=== PATIENT | male | born 1950 | race Caucasian/White ===

== ENCOUNTER 2019-09-14 08:06 | Outpatient (CLI) | payer MEDICARE, MEDICAID, SELFPAY ==
--- NOTE | 2019-09-14 08:00 | XRR_ITS ---
PROCEDURE INFORMATION: Exam: XR Abdomen, 1 View Exam date and time: 09/14/2019 8:34 AM Age: 69 years old Clinical indication: Condition or disease; Kidney or ureter condition; Calculus (stone) in ureter; Additional info: Stones lt ureter TECHNIQUE: Imaging protocol: XR of the abdomen. Views: Frontal supine view of the abdomen. 1 View. COMPARISON: CR XR KUB [id number] 09/09/2018 12:49 PM FINDINGS: Gastrointestinal tract: The bowel gas pattern is nonspecific. Air filled large bowel including distal rectal gas. Organs: 4 mm calcification overlies the lower pole of the left kidney. No significant change. Bones/joints: Severe degenerative changes lower lumbar spine XR/XR KUB [id number] IMPRESSION: 1. The bowel gas pattern is nonspecific. Air filled large bowel including distal rectal gas. 2. 4 mm calcification overlies the lower pole of the left kidney. No significant change.
== END 2019-09-14 08:07 | disposition home or self-care (01) ==
LOC: RAD 08:09
PROVIDERS: Family Provider Internal Medicine; PCP Urology; Visit Provider Urology
DX: N20.1 Calculus of ureter (principal); N20.0 Calculus of kidney
CPT/HCPCS: 74018; 81001

== ENCOUNTER 2020-09-13 07:05 | Outpatient (CLI) | payer MEDICARE, MEDICAID, SELFPAY ==
--- NOTE | 2020-09-13 07:10 | XR_ITS ---
WS: [id number] KUB, AP view, 09/13/2020 Clinical Data: RENAL STONE Comparison: KUB, 09/14/2019. Findings: No abnormal intraabdominal masses or calcifications are seen. There is no dilatated small bowel or ev idence of obstruction. The calcification overlying the lower pole of the left kidney may be obscured by bowel gas. The right kidney is obscured by bowel gas and fecal material. Degenerative changes of the lower lumbar vertebr al bodies are seen. There are vascular calcifications in the true pelvis. XR/XR KUB [id number] Impression: Possible calcification overlying the lower pole of the left kidney.
== END 2020-09-13 07:06 | disposition home or self-care (01) ==
PROVIDERS: PCP Urology; Visit Provider Urology
DX: N20.0 Calculus of kidney (principal)
CPT/HCPCS: 74018; 81003

== ENCOUNTER 2022-12-26 21:35 | Observation (INO) | payer MEDICARE, MEDICAID, SELFPAY ==
--- NOTE | 2022-12-26 21:36 | XRR_ITS ---
PROCEDURE INFORMATION: Exam: XR Chest Exam date and time: 12/26/2022 9:41 PM Age: 72 years old Clinical indication: Chest pressure; Prior surgery; Surgery date: 6+ months; Surgery type: Cabg; Patient HX: Sudden onset chest pain; HTN; Smoker x 50+ yrs; Vascular disease TECHNIQUE: Imaging protocol: Radiologic exam of the chest. Views: 1 view. COMPARISON: CR XR KUB [id number] 09/13/2020 7:14 AM FINDINGS: Lungs: No focal consolidation. Streaky opacity in the right lateral lung base, likely atelectasis/scarring. Pleural spaces: No large pleural effusion. No pneumothorax. Heart/Mediastinum: Unremarkable cardiomediastinal silhouette. Bones/joints: No acute osseous abnormality. Fracture of the inferior-most sternal wire. XR/XR chest 1V portable [id number] IMPRESSION: No acute findings.
[2022-12-26 21:38] VITALS: BMI 24.3
[2022-12-26 21:43] VITALS: BP 170/84; PULSE 108; RESP 16; TEMP 37.1; O2SAT 94
--- NOTE | 2022-12-26 21:44 | PC.NURSE ---
STEMI alert was called at 2119, Dr. Prince is going to further evaluate pt and EKG before deciding if we will do a cath or not.
--- NOTE | 2022-12-26 21:48 | W.ED.CHESTPA ---
HPI - Chest Pain General: Chief Complaint: Chest Pain Stated Complaint: CP Time Seen by Provider: 12/26/22 21:36 Source: patient Mode of arrival: ambulatory Limitations: no limitations History of Present Illness: 72-year-old male who has extensive cardiac history states that 30 minutes ago he started having chest pain in the center of his chest he received nitro and aspirin states pain has improved it is currently a 3 out of 10 he denies any diaphoresis or shortness of breath. He has had no recent cardiac work-ups. Associated symptoms: Deny abdominal pain, dyspnea, fever(s), nausea or vomiting Review of Systems Const: Denies: fever(s) or chills ENMT: Denies: throat pain or dental pain Card: Reports: chest pain Resp: Denies: dyspnea GI: Denies: abdominal pain, nausea, vomiting or diarrhea Musc: Denies: neck pain or back pain Skin/Breast: Denies: rash Neuro: Denies: headache(s) PFSH ED PFSH: Medical History Hypertension Left renal stone Left ureteral calculus Surgical History H/O lithotripsy Hx of CABG S/P appendectomy Family History Family/Other CAD (coronary artery disease) Social History Smoking and tobacco/nicotine status: current every day tobacco/nicotine user Alcohol intake: never Substance/Drug Use: never Marital status: Current occupational status: retired Physical Exam Const: COMMON NORMALS: no acute distress, patient oriented x3 and healthy appearing HENMT: COMMON NORMALS: normocephalic and atraumatic HEAD & SCALP: normocephalic and atraumatic Neck/C-Spine: COMMON NORMALS: full ROM and supple Chest: COMMONS NORMALS: normal inspection of the chest and normal palpation of entire chest wall Resp: COMMON NORMALS: normal respiratory effort, No retractions, No use of accessory muscles and clear to auscultation bilaterally AUSCULTATION: clear to auscultation bilaterally Cardio: COMMON NORMALS: regular rate, regular rhythm and No murmurs present (Cardio) RATE: regular rate RHYTHM: regular rhythm GI: COMMON NORMALS: Normal to inspection, nondistended, normoactive bowel sounds present, Soft to palpation, non-tender and no masses PALPATION: Yes Soft to palpation Extremity: COMMON NORMALS: normal to inspection and full ROM Neuro: COMMON NORMALS: patient oriented x3, moves all extremities and no focal motor deficits Psych: COMMON NORMALS: mental status grossly normal Skin: COMMON NORMALS: no rashes or lesions noted and no wounds GENERAL SKIN EXAM: no rashes or lesions noted Course Vital Signs: Vital signs: Vital Signs Temperature 98.7 F 12/26/22 21:43 Pulse Rate 75 12/26/22 22:40 Respiratory Rate 18 12/26/22 22:40 Blood Pressure 129/83 12/26/22 22:40 Pulse Oximetry 95 12/26/22 22:40 Oxygen Delivery Me thod Nasal Cannula 12/26/22 22:40 Oxygen Flow Rate 2 12/26/22 22:40 MDM - Chest Pain Medical Decision Making Patient presents here with chest pain initial troponin troponin EKG showed no ST elevation he does have extensive history spoke to hospitalist will admit at this time for observation to rule out ACS Medical Records I reviewed the patient's medical records. Lab Data I reviewed the patient's lab results. 12/26/22 21:49 12/26/22 21:49 Radiology Impressions Chest X-Ray 12/26/22 21:36 IMPRESSION: No acute findings. Laboratory Results WBC 4.91 10^3/uL (3.29-11.43) 12/26/22 21:49 Corrected WBC Cancelled 12/26/22 21:16 RBC 4.26 10^6/uL (3.85-5.65) 12/26/22 21:49 Hgb 13.30 g/dL (11.27-16.99) 12/26/22 21:49 Hct 41.5 % (37-53) 12/26/22 21:49 MCV 97.4 fl (82-101) 12/26/22 21:49 MCH 31.2 pg (27-33) 12/26/22 21:49 MCHC 32.0 g/dL (30-55) 12/26/22 21:49 RDW 17.2 % (12.1-15.1) H 12/26/22 21:49 Plt Count 124 10^3/cmm (157-399) L 12/26/22 21:49 MPV 10.6 fL (7.4-10.4) H 12/26/22 21:49 Gran % Cancelled 12/26/22 21:16 Neut % (Auto) 59.2 % 12/26/22 21:49 Lymph % (Auto) 36.5 % 12/26/22 21:49 [place] % (Auto) 3.3 % 12/26/22 21:49 Eos % (Auto) 0.0 % 12/26/22 21:49 Baso % (Auto) 0.0 % 12/26/22 21:49 Neut # (Auto) 2.91 10^3/uL (1.8-7.7) 12/26/22 21:49 Lymph # (Auto) 1.8 10^3/uL (0.8-4.8) 12/26/22 21:49 [place] # (Auto) 0.2 10^3/uL (0.2-0.9) 12/26/22 21:49 Eos # (Auto) 0.0 10^3/uL (0.0-0.8) 12/26/22 21:49 Baso # (Auto) 0.0 10^3/uL (0.0-0.1) 12/26/22 21:49 Absolute Gran (auto) Cancelled 12/26/22 21:16 Nucleated RBC % (auto) 0 % 12/26/22 21:49 Nucleated RBCs # 0.0 /100WBC 12/26/22 21:49 PT 13.80 SECONDS (12.1-14.9) 12/26/22 21:49 INR 1.03 (0.8-1.2) 12/26/22 21:49 Sodium 142 mmol/L (136-145) 12/26/22 21:49 Potassium 4.7 mmol/L (3.5-5.1) 12/26/22 21:49 Chloride 107 mmol/L (98-107) 12/26/22 21:49 Carbon Dioxide 22 mmol/L (22-29) 12/26/22 21:49 Anion Gap 17.7 (5-19) 12/26/22 21:49 BUN 16 mg/dL (8-23) 12/26/22 21:49 Creatinine 1.0 mg/dL (0.7-1.2) 12/26/22 21:49 GFR Calculation Not Reportable 12/26/22 21:49 Glucose 215 mg/dL (65-115) H 12/26/22 21:49 Calculated Osmolality 302 mOsm/kg (285-295) H 12/26/22 21:49 Calcium 8.7 mg/dL (8.5-10.5) 12/26/22 21:49 Total Bilirubin 0.3 mg/dL (0.15-1.2) 12/26/22 21:49 AST 17 U/L (0-40) 12/26/22 21:49 ALT 17 U/L (0-41) 12/26/22 21:49 Alkaline Phosphatase 95 U/L (40-130) 12/26/22 21:49 Troponin T Baseline 20 ng/L (0-15) H 12/26/22 21:49 Total Protein 6.1 g/dL (6.6-8.7) L 12/26/22 21:49 Albumin 4.2 g/dL (3.5-5.2) 12/26/22 21:49 Globulin 1.9 g/dL (1.3-4.6) 12/26/22 21:49 No radiology studies performed this visit EKG Data EKG 1: I personally reviewed and interpreted this EKG as follows: EKG interpretation date: 12/26/22 EKG interpretation time: 21:35 Interpretation: nsr hr [address] or t wave abnormalities qrs 117 qtc 418 Discharge Plan Discharge Condition: Stable Prescriptions: No Action hydrocodone-acetaminophen [[place]] 7.5-325 mg tablet 1 tab PO BID PRN sertraline 50 mg tablet 50 mg PO DAILY diltiazem HCl [Cartia XT] 120 mg capsule,extended release 24hr 120 mg PO DAILY diclofenac sodium 50 mg tablet,delayed release (DR/EC) 50 mg PO DAILY atenolol 25 mg tablet 25 mg PO DAILY trazodone 100 mg tablet 100 mg PO DAILY albuterol sulfate [Ventolin HFA] 90 mcg/actuation HFA aerosol inhaler 2 puff INHALATION Q6H PRN Referrals: Nino Segundo MD [Primary Care Provider] - Coding Level of Care Code ED Motor Vehicle Salesperson for Chg Tonya
[2022-12-26] MEDS: ondansetron 2 mg/ML SDV 2 mL 4 MG IVP (21:49)
[2022-12-26 21:51] VITALS: RESP 20
[2022-12-26] MEDS: morphine 4 mg/mL SDV 1 mL IVP (21:51)
[2022-12-26 21:55] LABS: Hematocrit 41.5 % (37-53); Lymphocytes # 1.8 10^3/uL (0.8-4.8); Lymphocytes % 36.5 %; Mean Corpuscular Hemoglobin 31.2 pg (27-33); Mean Corpuscular Volume 97.4 fl (82-101); Mean Platelet Volume 10.6 fL (7.4-10.4); Monocytes # 0.2 10^3/uL (0.2-0.9); Monocytes % 3.3 %; Neutrophils # 2.91 10^3/uL (1.8-7.7); Neutrophils % 59.2 %; Nucleated Red Blood Cells % 0 %; Platelet Count 124 10^3/cmm (157-399); Red Blood Count 4.26 10^6/uL (3.85-5.65); Red Cell Distribution Width 17.2 % (12.1-15.1); White Blood Count 4.91 10^3/uL (3.29-11.43)
[2022-12-26 22:08] LABS: INR 1.03 (0.8-1.2)
[2022-12-26 22:11] VITALS: BP 150/72; PULSE 78; RESP 22; O2SAT 96
--- NOTE | 2022-12-26 22:11 | ECG_ITS ---
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 Measurements Intervals [place] Rate: 80 P: -12 CT: 154 QRS: 68 QRSD: 121 T: 37 QT: 390 QTc: 451 Interpretive Statements SINUS RHYTHM POSSIBLE LEFT ATRIAL ENLARGEMENT [-0.1mV P-WAVE IN V1/V2] MODERATE INTRAVENTRICULAR CONDUCTION DELAY [110+ ms QRS DURATION] NONSPECIFIC ST & T-WAVE ABNORMALITY No previous ECG available for comparison Electronically Signed On 12-27-2022 14:13:36 COUNT TEAM MEMBER by Neto Prince M.D. [email or web address]/[id number]
[2022-12-26 22:15] LABS: Troponin(5th) Baseline 20 ng/L (0-15)
[2022-12-26 22:17] LABS: Alanine Aminotransferase 17 U/L (0-41); Albumin Level 4.2 g/dL (3.5-5.2); Alkaline Phosphatase 95 U/L (40-130); Anion Gap 17.7 (5-19); Aspartate Amino Transferase 17 U/L (0-40); Blood Urea Nitrogen 16 mg/dL (8-23); Calcium 8.7 mg/dL (8.5-10.5); Carbon Dioxide 22 mmol/L (22-29); Chloride 107 mmol/L (98-107); Globulin 1.9 g/dL (1.3-4.6); Glucose 215 mg/dL (65-115); Osmolality Calculated 302 mOsm/kg (285-295); Potassium 4.7 mmol/L (3.5-5.1); Sodium 142 mmol/L (136-145); Total Bilirubin 0.3 mg/dL (0.15-1.2); Total Protein 6.1 g/dL (6.6-8.7)
[2022-12-26 22:40] VITALS: BP 129/83; PULSE 75; RESP 18; O2SAT 95
--- NOTE | 2022-12-26 22:47 | PM.HP ---
Providers/Chief Complaint Primary Care Provider: Nino Segundo MD Chief Complaint: CP History of Present Illness Dean Mejia is a 72 year old male with a past medical history significant for 5v CABG (2020), myocardial infarction, asthma, hypertension, osteoarthritis on NSAIDs, and tobacco use disorder who presents to the emergency department with chest pain with onset prior to arrival. Describes location as substernal. Radiation to back and neck. Rated initially 10 out of 10. Reports he took 2 NTG initially without effect. EMS administered 4 aspirin and more nitroglycerin with improvement in pain. He reports a history of prior myocardial infarction. He states the symptoms today are the same as his prior ME. He has a history of a 5 vessel CABG in 2000. He denies any recent ischemic work up. Reports he takes a baby aspirin daily. Of note, patient is also on diltiazem. He is unsure if he has a history of atrial fibrillation. EKG is in sinus rhythm. He reports he takes a blood thinner but there is none listed on his home medication list in his wallet. He reports he lives a fairly sedentary lifestyle due to significant osteoarthritis. States he continues to smoke cigarettes but has cut back since moving into a building that does not allow smoking. In the ED, labs revealed elevated high sensitivity troponin T of 20 ng/L, hyperglycemia, and thrombocytopenia with platelets of 124. He states he was recently diagnosed with low platelets with PLT in the 80s last week. His doctor has him scheduled to recheck labs next month. He is on prescription diclofenac tabs. Review of Systems Narrative: A complete review of systems was obtained and is negative except as stated in HPI. Medications/Allergies Home Medications Medication Instructions Recorded Confirmed Last Taken Type albuterol sulfate 90 mcg/actuation 2 puff inhalation Q6H PRN 09/14/19 09/13/20 Unknown History aerosol inhaler (Ventolin HFA) atenolol 25 mg tablet 25 mg PO DAILY 09/14/19 09/13/20 Unknown History diclofenac sodium 50 mg 50 mg PO DAILY 09/14/19 09/13/20 Unknown History tablet,delayed release diltiazem HCl 120 mg 120 mg PO DAILY 09/14/19 09/13/20 Unknown History capsule,extended release 24 hr (Cartia XT) hydrocodone 7.5 mg-acetaminophen 1 tab PO BID PRN 09/14/19 09/13/20 Unknown History 325 mg tablet ([place]) sertraline 50 mg tablet 50 mg PO DAILY 09/14/19 09/13/20 Unknown History trazodone 100 mg tablet 100 mg PO DAILY 09/14/19 09/13/20 Unknown History Allergies Allergy/AdvReac Type Severity Reaction Status Date / Time No Known Allergies Allergy Unverified 09/13/20 08:09 PFSH Acute PFSH: Medical History Coronary artery disease Hypertension Left renal stone Left ureteral calculus Osteoarthritis Thrombocytopenia Tobacco use disorder Surgical History H/O lithotripsy Hx of CABG S/P appendectomy Family History Family/Other CAD (coronary artery disease) Social History Smoking and tobacco/nicotine status: current every day tobacco/nicotine user Alcohol intake: never Substance/Drug Use: never Marital status: Current occupational status: retired Vitals/I&O/Wt Last Vital Signs Temp 98.7 F 12/26/22 21:43 Pulse 75 12/26/22 22:40 Resp 18 12/26/22 22:40 BP 129/83 12/26/22 22:40 Pulse Ox 95 12/26/22 22:40 O2 Del Method Nasal Cannula 12/26/22 22:40 O2 Flow Rate 2 12/26/22 22:40 Weight last 48 hrs Weight 68.492 kg Physical Exam Narrative: General: Patient is awake and alert. Pleasant. Head: Normocephalic. Atraumatic. EOM intact. Neck: No JVD. Cardiovascular: RRR. No gallops. No murmurs. No peripheral edema. Lungs: Clear to auscultation, no use of accessory muscles, no crackles or wheezes. Skin: No jaundice. No rashes. Abdomen: Normal bowel sounds, abdomen soft and nontender. Genito Urinary: Genital exam not performed since complaints not related. Rectal: Rectal exam not performed since no symptoms indicated blood loss. Extremities: No cyanosis or clubbing. Musculoskeletal: No erythematous joints. Neurological: Moves all 4 extremities. No myoclonus. Data 12/26/22 21:49 12/26/22 21:49 A&P Assessment and plan (1) NSTEMI (non-ST elevated myocardial infarction): Initial troponin T 20 ng/L Trend troponin EKG reviewed, non-specific TWA; no STEMI Check lipids and A1c Start heparin drip Continue beta kerry Continue aspirin Start statin Echo Cardiology consulted NPO after midnight (2) Coronary artery disease: Hx of 5v CABG As above (3) Tobacco use disorder: Would benefit from cessation (4) Hypertension: Continue home atenolol Continue home diltiazem Obtain outside PCP records in AM (5) Thrombocytopenia: Hold home NSAID Monitor closely (6) Osteoarthritis: Holding NSAID d/t NSTEMI Continue home opiates as needed (7) Hyperglycemia: BS 215 Denies hx of diabetes mellitus Check A1c Plan DVT ppx: Heparin Attestations Medical Necessity Statement*: Pt presents w/ chest pain, found to have NSTEMI with expected hospitalization not to cross two midnights. Coding Level of Care Code Acute Code for [facility] Diagnoses NSTEMI (non-ST elevated myocardial infarction) I21.4 Coronary artery disease I25.10 Tobacco use disorder F17.200 Hypertension I10 Thrombocytopenia D69.6 Osteoarthritis M19.90 Hyperglycemia R73.9
--- NOTE | 2022-12-26 23:36 | ECG_ITS ---
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 Measurements Intervals [place] Rate: 92 P: 20 MD: 184 QRS: 72 QRSD: 117 T: 32 QT: 369 QTc: 457 Interpretive Statements SINUS RHYTHM POSSIBLE LEFT ATRIAL ENLARGEMENT [-0.1mV P-WAVE IN V1/V2] SEPTAL MYOCARDIAL INFARCTION , OF INDETERMINATE AGE [40+ ms Q WAVE IN V1/V2] No previous ECG available for comparison Electronically Signed On 12-27-2022 14:20:55 FILM SOUND ENGINEER by Neto Prince M.D. [id number]
[2022-12-26 23:40] VITALS: O2SAT 89
[2022-12-26 23:53] VITALS: BP 172/85; PULSE 85; O2SAT 96
[2022-12-27] VITALS (29 sets, daily range): BP systolic 103–183; BP diastolic 54–97; PULSE 46–96; RESP 13–29; TEMP 36.6; O2SAT 83–97; BMI 24.3
[2022-12-27] MEDS: morphine 4 mg/mL SDV 1 mL (00:09)
[2022-12-27 00:19] LABS: Estmated Average Glucose 105; Hemoglobin A1C 5.3 % (4.0-6.0)
[2022-12-27 00:34] LABS: Troponin 5 2HR 28.26 ng/L (0-15)
[2022-12-27 00:36] LABS: Troponin 5 2HR Delta 8.26 ABS# (0-10)
[2022-12-27] MEDS: heparin 5,000 unit/mL INJ 1 mL IV (00:36)
[2022-12-27] MEDS: heparin drip 25,000 UNIT/500 ML PREMIX 19 UNIT IV (00:38)
--- NOTE | 2022-12-27 03:36 | ECG_ITS ---
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 Measurements Intervals [place] Rate: 63 P: -10 [place]: 159 QRS: 69 QRSD: 114 T: -9 QT: 438 QTc: 450 Interpretive Statements SINUS RHYTHM POSSIBLE LEFT ATRIAL ENLARGEMENT [-0.1mV P-WAVE IN V1/V2] LEFT VENTRICULAR HYPERTROPHY AND ST-T CHANGE [VOLTAGE CRITERIA PLUS ST/T ABNORMALITY] POSSIBLE SEPTAL MYOCARDIAL INFARCTION , OF INDETERMINATE AGE [30 ms Q WAVE IN V1/V2] Compared to ECG 12/26/2022 22:11:29 Left ventricular hypertrophy now present ST (T wave) deviation now present Myocardial infarct finding now present Intraventricular conduction delay no longer present T-wave abnormality no longer present Electronically Signed On 12-27-2022 14:21:27 GAUGE OPERATOR by Neto Prince M.D. [id number]
[2022-12-27 03:46] LABS: Hematocrit 39.3 % (37-53); Lymphocytes # 1.8 10^3/uL (0.8-4.8); Lymphocytes % 31.1 %; Mean Corpuscular HGB Conc 31.6 g/dL (30-55); Mean Corpuscular Hemoglobin 30.5 pg (27-33); Mean Corpuscular Volume 96.8 fl (82-101); Mean Platelet Volume 10.8 fL (7.4-10.4); Monocytes # 0.3 10^3/uL (0.2-0.9); Neutrophils # 3.53 10^3/uL (1.8-7.7); Neutrophils % 62.7 %; Nucleated Red Blood Cells % 0 %; Platelet Count 119 10^3/cmm (157-399); Red Blood Count 4.06 10^6/uL (3.85-5.65); White Blood Count 5.63 10^3/uL (3.29-11.43)
[2022-12-27 04:06] LABS: Anion Gap 13.8 (5-19); Blood Urea Nitrogen 13 mg/dL (8-23); Calcium 8.8 mg/dL (8.5-10.5); Carbon Dioxide 26 mmol/L (22-29); Chloride 108 mmol/L (98-107); Glucose 144 mg/dL (65-115); Osmolality Calculated 299 mOsm/kg (285-295); Phosphorus 3.1 mg/dL (2.5-4.5); Potassium 4.8 mmol/L (3.5-5.1); Sodium 143 mmol/L (136-145)
[2022-12-27 04:07] LABS: Troponin 5 6HR 116.8 ng/L (0-15); Troponin 5 6HR Delta 96.8 ng/L (0-12)
[2022-12-27 04:17] LABS: Chol HDL Ratio 5.18 mg/dL (1.0-5.00); Cholesterol 171 mg/dL (0-200); HDL Cholesterol 33 mg/dL (60-100); LDL Cholesterol Calculated 129 mg/dL (50-129); LDL HDL Ratio 3.91 RATIO (0.00-3.22); Triglycerides 47 mg/dL (0-150)
[2022-12-27 07:17] LABS: Partial Thromboplastin Time 97.6 SECONDS (23.9-36.7)
--- NOTE | 2022-12-27 07:55 | P.CONIM_ITS ---
Providers/Reason For Consult Consulting Physician/Specialty*: Cardiovascular medicine Reason for Consult*: Chest pain, elevated troponin Requesting Physician: Hospitalist Attending Physician: Silviano Arevalo MD Primary Care Provider: Nino Segundo MD History of Present Illness History of Present Illness Dean Mejia is a 72 year old male who has a cardiac history. He had what he says is 5 vessel bypass surgery back in 2000. He has a card in his wallet which also states 5 vessel bypass surgery but only depicts for grafts. Those would be a free left internal mammary to the LAD, single saphenous vein graft to the first diagonal, single saphenous vein graft to the marginal and single saphenous vein graft to the right coronary artery. He apparently has not had much difficulty. He moved back to this area sometime ago and has not sought any cardiac care. Last night while sitting at rest he had the sudden onset of severe substernal chest pain and was brought to the hospital by ambulance. He says he had associated diaphoresis and shortness of breath with the pain radiating through his to his back. He was brought in under a STEMI alert however his EKG did not reveal an ST elevation myocardial infarction. He was admitted. His first troponin was 20, the second 28 and the third 116. He was started on a heparin drip. His EKG reveals sinus rhythm with diffuse ST segment changes more pronounced in the inferior leads. He is free of pain this morning. In addition to the coronary artery disease and bypass surgery he has asthma, hypertension, degenerative joint disease, thrombocytopenia and he is a smoker. Review of Systems Narrative: Review of systems is negative Medications/Allergies Home Medications Medication Instructions Recorded Confirmed Last Taken Type albuterol sulfate 90 mcg/actuation 2 puff inhalation Q6H 09/14/19 12/26/22 12/25/22 History aerosol inhaler (Ventolin HFA) atenolol 25 mg tablet 25 mg PO DAILY 09/14/19 12/26/22 12/25/22 History diclofenac sodium 50 mg 50 mg PO DAILY 09/14/19 12/26/22 12/25/22 History tablet,delayed release diltiazem HCl 120 mg 120 mg PO DAILY 09/14/19 12/26/22 12/25/22 History capsule,extended release 24 hr (Cartia XT) sertraline 50 mg tablet 50 mg PO DAILY 09/14/19 12/26/2223 History trazodone 100 mg tablet 100 mg PO BEDTIME 09/14/19 12/26/22 12/25/22 History cephalexin 500 mg capsule 500 mg PO QID 12/26/22 12/26/22 12/25/22 History hydrocodone 7.5 mg-acetaminophen 1 tab PO BID 12/26/22 12/26/22 12/25/22 History 325 mg tablet Allergies Allergy/AdvReac Type Severity Reaction Status Date / Time No Known Allergies Allergy Unverified 09/13/20 08:09 Current Medications Generic Name Dose Route Start Last Admin Trade Name Freq PRN Reason Stop Dose Admin Heparin Sodium (Porcine) 0 unit 12/26/22 23:42 12/27/22 00:36 Heparin 5,000 Unit/Ml Inj 1 Ml IV 3,400 unit PRN PRN Administration Heparin weight-base protocol Protocol Heparin Sodium/Sodium Chloride 25,000 unit in 500 mls @ 0 mls/hr 12/26/22 23:42 12/27/22 07:25 Heparin Drip IV 10.95 unit/kg/hr .Q0M JM 15 mls/hr Titration Protocol Per Protocol PFSH Acute PFSH: Medical History (Updated 12/27/22 @ 08:00 by Neto Prince MD) Coronary artery disease Elevated troponin Hypertension Left renal stone Left ureteral calculus Osteoarthritis Thrombocytopenia Tobacco use disorder Surgical History (Updated 12/27/22 @ 08:00 by Neto Prince MD) H/O lithotripsy Hx of CABG S/P appendectomy Family History Family/Other CAD (coronary artery disease) Social History Smoking and tobacco/nicotine status: current every day tobacco/nicotine user Alcohol intake: never Substance/Drug Use: never Marital status: Current occupational status: retired Vitals/I&O/Wt Last Vital Signs Temp 98.7 F 12/26/22 21:43 Pulse 63 12/27/22 06:00 Resp 17 12/27/22 04:00 BP 139/69 12/27/22 04:00 Pulse Ox 93 12/27/22 04:00 O2 Del Method Nasal Cannula 12/27/22 00:17 O2 Flow Rate 2 12/26/22 22:40 12/26/22 12/27/22 12/27/22 22:59 06:59 14:59 Intake Total 128.883 / 128.883 Balance 128.883 / 128.883 Weight last 48 hrs Weight 150 lb 4.8 oz Weight 150 lb 4.8 oz Weight 150 lb 4.8 oz Weight 151 lb Physical Exam Narrative: GENERAL: In general he looks and feels well HEENT: Exam within normal limits. NECK: Supple without jugular vein distention. The carotid upstroke is normal without bruits. BACK: Exam normal. LUNGS: Clear. HEART: Regular rate and rhythm. ABDOMEN: Benign without organomegaly or tenderness. EXTREMITIES: No edema. NEUROLOGIC: Exam normal. SKIN: Unremarkable. Data 12/27/22 03:25 12/27/22 03:25 A&P Assessment and plan (1) Hyperglycemia: (2) Osteoarthritis: (3) Thrombocytopenia: (4) Hypertension: (5) Coronary artery disease: (6) Tobacco use disorder: (7) Hx of CABG: (8) Elevated troponin: Plan Once I was able to obtain the coronary bypass graft information, I approached him with the idea of coronary angiography. He has declined given he cannot lie flat on his back due to chronic back pain. We cannot perform the angiogram through the wrist because he has bypass grafts. He wishes to start with a stress test. I have reinstituted his diet. We will leave him on heparin for no w, stratify his risk with a stress test and move forward from there. Consult Attestations Medical Necessity Statement: Admitted for chest pain with elevated troponin and Moderate Time for a total of 40 minutes, includes reviewing past or interval history, examining/interviewing patient, placing orders, counseling patient/family/other support and documenting encounter Diagnoses Hyperglycemia R73.9 Osteoarthritis M19.90 Thrombocytopenia D69.6 Hypertension I10 Coronary artery disease I25.10 Tobacco use disorder F17.200 Hx of CABG Z95.1 Elevated troponin R79.89
[2022-12-27] MEDS: sertraline 50 mg Tablet PO (08:14)
[2022-12-27] MEDS: aspirin 81 mg EC Tablet PO (08:14)
[2022-12-27] MEDS: atenolol 50 mg Tablet 25 MG PO (08:14)
[2022-12-27] MEDS: dilTIAZem ER (24HR) 120 mg Capsule PO (08:15)
--- NOTE | 2022-12-27 11:39 | P.PN_ITS ---
Subjective Subjective: Patient was reluctant to go for angiogram because of his chronic back pain, however with much discussion he decided to go with the angiogram he is well aware that his pain will make it very difficult but he is waiting to go for it we will use fentanyl during post angiogram phase he is being scheduled for 4 PM, Dr. Prince is planning for angiogram this evening Vitals/I&O/Wt Last Vital Signs Temp 98.7 F 12/26/22 21:43 Pulse 63 12/27/22 06:00 Resp 17 12/27/22 04:00 BP 139/69 12/27/22 04:00 Pulse Ox 93 12/27/22 04:00 O2 Del Method Nasal Cannula 12/27/22 00:17 O2 Flow Rate 2 12/26/22 22:40 12/26/22 12/27/22 12/27/22 22:59 06:59 14:59 Intake Total 128.883 / 128.883 Balance 128.883 / 128.883 Weight last 48 hrs Weight 68.175 kg Weight 68.175 kg Weight 68.175 kg Weight 68.492 kg Physical Exam Narrative: Patient is chest pain-free Hemodynamically stable Currently on 2 L nasal cannula Awake and alert Euvolemic Abdomen soft No signs of heart failure S1, S2 Pleasant and cooperative Data 12/27/22 03:25 12/27/22 03:25 A&P Assessment and plan (1) Elevated troponin: (2) Hx of CABG: (3) Hyperglycemia: (4) Osteoarthritis: (5) Thrombocytopenia: (6) Hypertension: (7) NSTEMI (non-ST elevated myocardial infarction): (8) Coronary artery disease: (9) Tobacco use disorder: Plan Patient is going for coronary angiogram at 4 PM We have allowed him to have breakfast After 10 AM he wont be able to eat He will be n.p.o. ICU nurse notified No active chest pain History of CABG 2000 Full code Chronic back pain Not a surgical candidate as per the patient He has seen orthopedic surgeon in the past Lives alone, Full code We will use Dilaudid and fentanyl for his back pain Attestations Medical Necessity Statement*: Continue medical management Diagnoses Elevated troponin R79.89 Hx of CABG Z95.1 Hyperglycemia R73.9 Osteoarthritis M19.90 Thrombocytopenia D69.6 Hypertension I10 NSTEMI (non-ST elevated myocardial infarction) I21.4 Coronary artery disease I25.10 Tobacco use disorder F17.200
[2022-12-27] MEDS: aspirin 325 mg Tablet PO (11:44)
[2022-12-27] MEDS: diphenhydrAMINE 50 mg Capsule PO (11:44)
[2022-12-27] MEDS: sodium chloride 0.9% 1,000 ML 50 ML IV (11:45)
--- NOTE | 2022-12-27 12:20 | XACV_ITS ---
Exam Room: 2 Ht: 168 cm Wt: 68 kg BSA: 1.79 m2 Gender: Male : 1950 Any Known Allergies: No known allergies Exam Priority: Routine Procedure(s): Procedure Description: Diagnostic procedure Suresh MOORE; Diagnostic Cath Status: Urgent Diagnostic Findings * Patient with a history of bypass surgery some 18 years ago. Admitted with chest pain and mild troponin elevation. Initially refused angiography due to back pain but eventually consented. Attempts were made to enter both common femoral arteries. A wire was passed to the common iliac artery on both sides. Both common iliac arteries are occluded and a wire could not be placed into the central aorta. The procedure was discontinued. * The patient has had bypass surgery so the radial arteries cannot be used. Conclusions 1. Occluded bilateral common iliac arteries. Angiography not performed. Interventional RX Recommendation: none Diagnostic RX Recommendation: none Clinical Evaluation EBL: 5mL-10mL Procedural Details Procedure Consent Obtained. Admit Source: In Patient. Pre-Procedure Time Out. Identified patient by full name and date of as verbalized by the patient/guarantor. Does the consent match the physician's order: Yes. Accurate & Complete Informed Consent: Yes. Inpatient/Outpatient History & Physical on Chart: Yes. If H&P is completed, is and addenduem needed: No; If yes, is the addendum complete: N/A. Visualize and Verify Site with Patient/Guarantor: N/A. Relevant Radiology Images available: N/A. The risks, benefits, and alternatives of sedation and/or procedure were discussed by physician. The patient agrees to continue. Procedure started. [facility] Clinical Fraility Score: 4: Vulnerable. Submersible Pilot Indications: Stable Known CAD. Chest Pain Symptom Assessment: Atypical Angina. Correct patient, site and procedure confirmed by cath team. Current diagnosis: Chest Pain. PERRLA. Strong, equal hand gambreler bilaterally. Lungs clear x 5 lobes. IV Site on Arrival: 20 gauge in the right anticubital. IV Site on Arrival: 20 gauge in the left anticubital. IV Fluids: 0.9% NaCl at KVO. 200 mL infused prior to equipment operator/laborer/supervisor. Pre Procedural Pulses: bilateral radial was 2+. Pre Procedural Pulses: bilateral dorsalis pedis was Doppled. Pre Procedural Pulses: bilateral posterior tibial was Doppled. Oxygen started at 2liters/min via nasal canula. bilateral groins was prepped with chloroprep then draped in the usual sterile fashion. Physician notified. Baseline sample Acquired. HR: 69 BPM. Physician arrived. Physician scrubbed in. Immediate Pre-Procedure Time Out. Correct Patient: Yes; Correct Procedure: Yes; Correct Site: Yes; Correct Patient Position: Yes; Correct Supplies: Yes; Dried Flammable Prep: Yes; Blood Products Available: No;. Lidocaine 1% infiltrated to the right groin. An attempt to gain access to the right femoral artery was unsuccessful. Manual pressure was held as needed to stop the bleeding. An attempt to gain access to the right femoral artery was unsuccessful. Manual pressure was held as needed to stop the bleeding. Arterial access obtained. Glidewire in through access needle. Unable to advance glidewire. Access needle and glidewire out. Manual pressure held as needed to stop bleeding. Lidocaine 1% infiltrated to the left groin. Venous access obtained. Wire and needle out, holding manual pressure as needed to stop bleeding. Arterial access obtained. Unable to advance wire. Glidewire in through access needle. Unable to advance wire. Access needle and glidewire out. Physician scrubbed out. Post Procedure: Pulses reassessed and unchanged. PERRLA. Strong, equal hand gambreler bilaterally. No VTE prophylaxis required. Medication's Wasted: Heparin = 4000 units. Medication's Wasted: Other = Versed 1 mg. Total IV fluids: 45 mL. Bkcaxyhdw2hD. Post-op diagnosis: Occluded Bilateral Iliac arteries. Complications: None. Estimated blood loss: 5mL-10mL. Responsiveness - Normal response to verbal stimuli; alert and oriented, PERRLA. Airway - Unaffected, no intervention required; spontaneous ventilation. Circulation: W/N/L, pulses unchanged. Nausea/Vomiting: No. Procedure completed. Patient transferred by bed to ICU. Vital chart was stopped. Procedure Medications Start: 12:43 PM Stop: 12:43 PM Medication: Versed Amount: 1 mg Route: I.V. Start: 12:43 PM Stop: 12:43 PM Medication: Fentanyl Amount: 50 mcg Route: I.V. Start: 12:55 PM Stop: 12:55 PM Medication: Versed Amount: 1 mg Route: I.V. Start: 12:55 PM Stop: 12:55 PM Medication: Fentanyl Amount: 50 mcg Route: I.V. Start: 1:06 PM Stop: 1:06 PM Medication: Versed Amount: 1 mg Route: I.V. I, the attending physician, have reviewed and verified all procedure medications. Yes, all medications given per verbal order History/Risk Factors Hypertension: Yes Dyslipidemia: No Peripheral Arterial Disease (PAD): No Myocardial Infarction ([place]): No Obesity: No Renal Disease: No Tobacco Use: Current/Recent(w/in 1 year) Prior Interventions PCI: No CABG: Yes Valve Surgery: No Report Signatures Finalized by Dr. Neto Prince MD on 12/27/2022 01:24 PM
[2022-12-27] MEDS: atorvastatin 40 mg Tablet PO (21:58)
[2022-12-27] MEDS: trazodone 100 mg Tablet PO (22:00)
[2022-12-27] MEDS: ipratropium-albuterol 3 mL Neb INHALATION (22:33)
--- NOTE | 2022-12-27 23:42 | USCV_ITS ---
Dean Mejia Age: 72 Gender: M : 1950 Exam Date: 12/27/2022 03:33 Ordering Phys: Zachary Yao MD Technologist: STEPHEN Exam Location: [facility] [place] Indication: NSTEMI, history of CABG 2000, no cardiac stents per patient. BP: 170 / 97 HR: 63 Rhythm: Sinus Technical Quality: Adequate MEASUREMENTS (Male / Female) Normal Values 2D ECHO LV Diastolic Diameter PLAX 5.2 cm 4.2 - 5.9 / 3.9 - 5.3 cm LV Systolic Diameter PLAX 4.1 cm IVS Diastolic Thickness 1.8 cm 0.6 - 1.0 / 0.6 - 0.9 cm IVS Systolic Thickness 2.4 cm LVPW Diastolic Thickness 1.8 cm 0.6 - 1.0 / 0.6 - 0.9 cm LVPW Systolic Thickness 2.0 cm LVOT Diameter 1.8 cm LV Ejection Fraction 2D Teich 44.3 % LV Ejection Fraction MOD 2C 47.2 % LV Ejection Fraction 2C AL 47.0 % LA Diameter 5.0 cm LA Width 5.1 cm LA Height 6.2 cm RA Width 4.3 cm RA Height 4.5 cm Aorta at Sinotubular Diameter 2.9 cm IVC Diameter 2.4 cm M-MODE Aortic Annulus Diameter 3.5 cm LA Ao Ratio MM 1.4 MV E Point Septal Separation 0.6 cm DOPPLER AV Peak Velocity 127.0 cm/s LVOT Peak Velocity 73.0 cm/s AV Area Cont Eq vti 1.4 cm squared AV Area Cont Eq pk 1.4 cm squared MV Peak Velocity 98.0 cm/s MV Area PHT 2.6 cm squared Mitral E to A Ratio 0.8 MV E' Velocity 35.5 cm/s Mitral E to MV E' Ratio 13.6 Mitral E to LV E' Lateral Ratio 14.4 Mitral E to LV E' Septal Ratio 13.0 TR Peak Velocity 189.0 cm/s TR Peak Gradient 14.3 mmHg TV Peak E Velocity 41.0 cm/s Right Atrial Pressure 10.0 mmHg Pulmonary Artery Systolic Pressu 24.3 mmHg PV Peak Velocity 95.0 cm/s RV Acceleration Time 0.1 s RV Ejection Time 0.3 s RV AcT/ET 0.5 FINDINGS Left Ventricle Normal left ventricular cavity size. Normal left ventricular wall thickness. Mildly decreased left ventricular systolic function. Global left ventricular hypokinesis. Grade I/IV diastolic dysfunction (abnormal relaxation filling pattern), normal to mildly elevated filling pressures. Left ventricular ejection fraction is estimated at 40-45 %. Right Ventricle Normal right ventricular size and systolic function. Normal right ventricular systolic pressure. Right Atrium The right atrium is normal in size. Left Atrium Mildly increased left atrial size. Mitral Valve Structurally normal mitral valve. Mild mitral valve regurgitation. Aortic Valve Mild aortic valve calcification. Aortic valve sclerosis without stenosis or regurgitation. Tricuspid Valve Structurally normal tricuspid valve. Trace tricuspid valve regurgitation. Pulmonic Valve Trace pulmonary valve regurgitation. Pulmonic valve not well visualized. Pericardium Normal pericardium without effusion. Aorta Normal ascending aorta dimension. IVC The inferior vena cava appears normal. CONCLUSIONS Normal left ventricular cavity size. Normal left ventricular wall thickness. Mildly decreased left ventricular systolic function. Global left ventricular hypokinesis. Grade I/IV diastolic dysfunction (abnormal relaxation filling pattern), normal to mildly elevated filling pressures. Left ventricular ejection fraction is estimated at 40-45 %. Mildly increased left atrial size. Structurally normal mitral valve. Mild mitral valve regurgitation. There are no prior echocardiogram studies to compare. Dr. Neto Prince MD (Electronically Signed) Final Date: 27 December 2022 13:41 S
[2022-12-28] VITALS (7 sets, daily range): BP systolic 130–150; BP diastolic 58–76; PULSE 46–58; RESP 16–22; O2SAT 93–96; BMI 24.3
[2022-12-28 04:21] LABS: Basophils % 0.1 %; Eosinophils % 0.1 %; Hematocrit 39.9 % (37-53); Lymphocytes # 3.3 10^3/uL (0.8-4.8); Lymphocytes % 43.8 %; Mean Corpuscular HGB Conc 30.8 g/dL (30-55); Mean Corpuscular Hemoglobin 30.6 pg (27-33); Mean Corpuscular Volume 99.3 fl (82-101); Monocytes # 0.7 10^3/uL (0.2-0.9); Monocytes % 9.2 %; Neutrophils # 3.49 10^3/uL (1.8-7.7); Neutrophils % 46.3 %; Nucleated Red Blood Cells % 0 %; Platelet Count 118 10^3/cmm (157-399); Red Blood Count 4.02 10^6/uL (3.85-5.65); Red Cell Distribution Width 17.2 % (12.1-15.1); White Blood Count 7.54 10^3/uL (3.29-11.43)
[2022-12-28 04:39] LABS: Anion Gap 11.5 (5-19); Blood Urea Nitrogen 20 mg/dL (8-23); Calcium 8.5 mg/dL (8.5-10.5); Carbon Dioxide 27 mmol/L (22-29); Chloride 109 mmol/L (98-107); Glucose 85 mg/dL (65-115); Osmolality Calculated 298 mOsm/kg (285-295); Potassium 4.5 mmol/L (3.5-5.1); Sodium 143 mmol/L (136-145)
--- NOTE | 2022-12-28 08:10 | P.DS_ITS ---
Discharge Providers Date of Admission: 12/26/22 22:41 Date of Discharge: December 28, 2022 Attending Provider at Admission: Zachary Yao MD Attending Provider at Discharge: Silviano Arevalo MD Primary Care Provider: Nino Segundo MD Diagnoses at Discharge Discharge Diagnosis (1) Elevated troponin: Status: Acute (2) Hx of CABG: Status: Acute (3) Hyperglycemia: Status: Acute (4) Osteoarthritis: Status: Acute (5) Thrombocytopenia: Status: Acute (6) Hypertension: Status: Acute (7) NSTEMI (non-ST elevated myocardial infarction): Status: Acute (8) Coronary artery disease: Status: Acute (9) Tobacco use disorder: Status: Acute Reason for Visit Reason for Visit: CP Hospital Course Hospital Course 72-year male who was admitted for management evaluation of unstable angina, he has history of CABGx5 2000, an active smoker, cardiology was consulted, initially patient was reluctant to go for angiogram because of his back pain however after much discussion he agreed for angiogram, because of atretic iliac vessels we were not able to access hence angiography was aborted. Patient remained chest pain-free, he will be managed medically. Patient is stating that he has DNR/DNI advanced directives and family is well aware. He is on room air hemodynamically stable. He is being discharged with close cardiology outpatient follow-up, optimize antianginal medication, not a good candidate for neurology because of bradycardia, atenolol discontinued. I am adding aspirin, Plavix, low-dose lisinopril atorvastatin and nitrates. Physical Exam Narrative: Awake and alert Chest pain-free Hemodynamic stable Currently on room air Pleasant and cooperative Discharge Data Studies Completed and Pending Completed Studies During Hospitalization Category Date Time Status BUSINESS EMPLOYMENT SPECIALIST request for service Routine Exams 12/27/22 12:20 Completed XR chest 1V portable [id number] Stat Exams 12/26/22 21:36 Completed CV. echo complete* [id number] Routine Ultrasound 12/27/22 23:42 Completed Pending at discharge Category Date Time Status Platelet Count Q2D Lab 12/30/22 04:00 Ordered Radiology Impressions Chest X-Ray 12/26/22 21:36 IMPRESSION: No acute findings. Laboratory Results WBC 7.54 10^3/uL (3.29-11.43) 12/28/22 03:43 Corrected WBC Cancelled 12/26/22 21:16 RBC 4.02 10^6/uL (3.85-5.65) 12/28/22 03:43 Hgb 12.30 g/dL (11.27-16.99) 12/28/22 03:43 Hct 39.9 % (37-53) 12/28/22 03:43 MCV 99.3 fl (82-101) 12/28/22 03:43 MCH 30.6 pg (27-33) 12/28/22 03:43 MCHC 30.8 g/dL (30-55) 12/28/22 03:43 RDW 17.2 % (12.1-15.1) H 12/28/22 03:43 Plt Count 118 10^3/cmm (157-399) L 12/28/22 03:43 MPV 11.0 fL (7.4-10.4) H 12/28/22 03:43 Gran % Cancelled 12/26/22 21:16 Neut % (Auto) 46.3 % 12/28/22 03:43 Lymph % (Auto) 43.8 % 12/28/22 03:43 [place] % (Auto) 9.2 % 12/28/22 03:43 Eos % (Auto) 0.1 % 12/28/22 03:43 Baso % (Auto) 0.1 % 12/28/22 03:43 Neut # (Auto) 3.49 10^3/uL (1.8-7.7) 12/28/22 03:43 Lymph # (Auto) 3.3 10^3/uL (0.8-4.8) 12/28/22 03:43 [place] # (Auto) 0.7 10^3/uL (0.2-0.9) 12/28/22 03:43 Eos # (Auto) 0.0 10^3/uL (0.0-0.8) 12/28/22 03:43 Baso # (Auto) 0.0 10^3/uL (0.0-0.1) 12/28/22 03:43 Absolute Gran (auto) Cancelled 12/26/22 21:16 Nucleated RBC % (auto) 0 % 12/28/22 03:43 Nucleated RBCs # 0.0 /100WBC 12/28/22 03:43 PT 13.80 SECONDS (12.1-14.9) 12/26/22 21:49 INR 1.03 (0.8-1.2) 12/26/22 21:49 APTT 97.6 SECONDS (23.9-36.7) H 12/27/22 06:24 Sodium 143 mmol/L (136-145) 12/28/22 03:43 Potassium 4.5 mmol/L (3.5-5.1) 12/28/22 03:43 Chloride 109 mmol/L (98-107) H 12/28/22 03:43 Carbon Dioxide 27 mmol/L (22-29) 12/28/22 03:43 Anion Gap 11.5 (5-19) 12/28/22 03:43 BUN 20 mg/dL (8-23) 12/28/22 03:43 Creatinine 0.9 mg/dL (0.7-1.2) 12/28/22 03:43 GFR Calculation Not Reportable 12/28/22 03:43 Glucose 85 mg/dL (65-115) 12/28/22 03:43 Estimat Average Glucose 105 12/26/22 21:48 Hemoglobin A1c 5.3 % (4.0-6.0) 12/26/22 21:48 Calculated Osmolality 298 mOsm/kg (285-295) H 12/28/22 03:43 Calcium 8.5 mg/dL (8.5-10.5) 12/28/22 03:43 Phosphorus 3.1 mg/dL (2.5-4.5) 12/27/22 03:25 Magnesium 2.0 mg/dL (1.7-2.3) 12/27/22 03:25 Total Bilirubin 0.3 mg/dL (0.15-1.2) 12/26/22 21:49 AST 17 U/L (0-40) 12/26/22 21:49 ALT 17 U/L (0-41) 12/26/22 21:49 Alkaline Phosphatase 95 U/L (40-130) 12/26/22 21:49 Troponin T Baseline 20 ng/L (0-15) H 12/26/22 21:49 Troponin T 120 Minute 28.26 ng/L (0-15) H 12/26/22 23:55 Delta Troponin T 8.26 ABS# (0-10) 12/26/22 23:55 Troponin T Hi Sens 6Hr 116.8 ng/L (0-15) H 12/27/22 03:25 Troponin T Hi Sens 6Hr Delta 96.8 ng/L (0-12) H* 12/27/22 03:25 Total Protein 6.1 g/dL (6.6-8.7) L 12/26/22 21:49 Albumin 4.2 g/dL (3.5-5.2) 12/26/22 21:49 Globulin 1.9 g/dL (1.3-4.6) 12/26/22 21:49 Triglycerides 47 mg/dL (0-150) 12/27/22 03:25 Cholesterol 171 mg/dL (0-200) 12/27/22 03:25 LDL Cholesterol, Calc 129 mg/dL (50-129) 12/27/22 03:25 HDL Cholesterol 33 mg/dL (60-100) L 12/27/22 03:25 LDL/HDL Ratio 3.91 RATIO (0.00-3.22) H 12/27/22 03:25 Cholesterol/HDL Ratio 5.18 mg/dL (1.0-5.00) H 12/27/22 03:25 Vitals Last Vital Signs Temp 97.9 F 12/27/22 19:53 Pulse 54 L 12/28/22 06:00 Resp 16 12/28/22 06:00 BP 139/58 12/28/22 06:00 Pulse Ox 95 12/28/22 06:00 O2 Del Method Room Air 12/28/22 04:00 O2 Flow Rate 2 12/27/22 22:34 Discharge Plan Discharge Patient Disposition: Home Condition: Stable Prescriptions: New atorvastatin 40 mg Tablet 40 mg PO BEDTIME Qty: 60 2RF nitroglycerin 0.4 mg Tablet, Sublingual 0.4 mg sublingual Q5M PRN (Reason: Chest Pain) Qty: 10 0RF aspirin 81 mg Tablet,Delayed Release (Dr/Ec) 81 mg PO DAILY Qty: 60 2RF clopidogrel [Plavix] 75 mg tablet 75 mg PO DAILY Qty: 60 2RF isosorbide mononitrate 30 mg tablet extended release 24 hr 30 mg PO DAILY Qty: 60 3RF lisinopril 5 mg tablet 5 mg PO DAILY Qty: 60 2RF Continued sertraline 50 mg tablet 50 mg PO DAILY diltiazem HCl [Cartia XT] 120 mg capsule,extended release 24hr 120 mg PO DAILY trazodone 100 mg tablet 100 mg PO BEDTIME albuterol sulfate [Ventolin HFA] 90 mcg/actuation HFA aerosol inhaler 2 puff INHALATION Q6H hydrocodone-acetaminophen 7.5-325 mg tablet 1 tab PO BID Discontinued diclofenac sodium 50 mg tablet,delayed release (DR/EC) 50 mg PO DAILY atenolol 25 mg tablet 25 mg PO DAILY cephalexin 500 mg capsule 500 mg PO QID Rx Instructions: total of 7 days Discharge Orders: Discharge Order (Routine); Ordered 12/28/22 Ordered By: Silviano Arevalo Referrals: Neto Prince MD [Physician] - (Your Dr. Prince follow up appointment will be scheduled during your Ivon Matos appointment. Thank you.) Nino Segundo MD [Primary Care Provider] - (Please call Dr. Segundo's Office on Friday at [phone] to schedule a follow up appointment. Thank you.) Ivon Matos FNP [Nurse Practitioner] - (Please call Ivon Matos's Office on Friday at [phone] to schedule a follow up appointment. Thank you. ) David Ruiz MD [Physician] - 4-7 days Patient Instructions: Coronary Angioplasty (DC), Opioid Safety, Post Angiogram Home Care Instructions, Post Heart Attack Stoplight Discharge Attestations Time Spent in Discharge Care*: greater than 30 min Quality Metrics Clinical Quality Measures [ No reported AMI, CVA or VTE this stay] Coding Level of Care Code Acute Code for Chg Fwd Diagnoses Elevated troponin R79.89 Hx of CABG Z95.1 Hyperglycemia R73.9 Osteoarthritis M19.90 Thrombocytopenia D69.6 Hypertension I10 NSTEMI (non-ST elevated myocardial infarction) I21.4 Coronary artery disease I25.10 Tobacco use disorder F17.200
[2022-12-28] MEDS: ipratropium-albuterol 3 mL Neb INHALATION (08:30)
--- NOTE | 2022-12-28 09:10 | P.PN_ITS ---
Subjective Subjective: The patient is feeling okay. He has not had any chest pain for the last 48 hours. He has been ambulating on telemetry with normal specific symptoms. Cardiac catheterization was attempted yesterday, by Dr. Prince. Since both iliac arteries were occluded, he could not perform the procedure. The plan was to treat him medically for the time being. Medications: Medication Review Details: Current Medications Acetaminophen (Acetaminophen 325 Mg Tablet) 650 mg PO Q6H PRN PRN Reason: Mild/Mod Pain Or Temp >/= 101 Albuterol/Ipratropium (Ipratropium-Albuterol 3 Ml Neb) 3 ml INHALATION Q6H PRN PRN Reason: SHORTNESS OF BREATH Last Admin: 12/28/22 08:30 Dose: 3 ml Aspirin (Aspirin 81 Mg Ec Tablet) 81 mg PO DAILY [facility] Last Admin: 12/27/22 08:14 Dose: 81 mg Atenolol (Atenolol 50 Mg Tablet) 25 mg PO DAILY [facility] Last Admin: 12/27/22 08:14 Dose: 25 mg Atorvastatin Calcium (Atorvastatin 40 Mg Tablet) 1 mg PO BEDTIME [facility] Last Admin: 12/27/22 21:58 Dose: 1 mg Calcium Carbonate (Calcium Carbonate 500 Mg Chew Tablet) 1,000 mg PO Q4H PRN PRN Reason: DYSPEPSI Diltiazem HCl (Diltiazem Er (24hr) 120 Mg Capsule) 120 mg PO DAILY [facility] Last Admin: 12/27/22 08:15 Dose: 120 mg Hydromorphone HCl (Hydromorphone 1 Mg/Ml Inj 1 Ml) 1 mg IVP Q4H PRN PRN Reason: Back pain Lidocaine (Lidocaine 5% Patch) 1 patch TOPICAL [id number] [facility] Last Admin: 12/27/22 22:30 Dose: Not Given Morphine Sulfate (Morphine 4 Mg/Ml Sdv 1 Ml) 2 mg IVP Q4H PRN PRN Reason: SEVERE PAIN Nitroglycerin (Nitroglycerin 0.4 Mg Sublingual Tablet) 0.4 mg SUBLINGUAL Q5M PRN PRN Reason: CHEST PAIN Ondansetron HCl (Ondansetron 2 Mg/Ml Sdv 2 Ml) 4 mg IVP Q8H PRN PRN Reason: vomiting, or N/V if npo Sertraline HCl (Sertraline 50 Mg Tablet) 50 mg PO DAILY [facility] Last Admin: 12/27/22 08:14 Dose: 50 mg Trazodone HCl (Trazodone 100 Mg Tablet) 100 mg PO BEDTIME [facility] Last Admin: 12/27/22 22:00 Dose: 100 mg Vitals/I&O/Wt Last Vital Signs Temp 97.9 F 12/27/22 19:53 Pulse 58 L 12/28/22 08:59 Resp 16 12/28/22 08:59 BP 139/58 12/28/22 06:00 Pulse Ox 95 12/28/22 08:59 O2 Del Method Nasal Cannula 12/28/22 08:00 O2 Flow Rate 2 12/28/22 08:00 12/27/22 12/28/22 12/28/22 22:59 06:59 14:59 Intake Total 300 / 428.883 Output Total 500 / 800 250 / 1050 Balance -200 / -371.117 -250 / -621.117 Weight last 48 hrs Weight 150 lb 4.8 oz Weight 150 lb 4.8 oz Weight 150 lb 4.8 oz Weight 150 lb 4.8 oz Weight 151 lb Physical Exam Narrative: GENERAL: The patient is alert and oriented times three. Not in any acute distress. HEENT: No significant pallor, icterus or lymphadenopathy.Oral cavity: There are no mucous membrane lesions. NECK: Trachea appears to be central. No masses noted. No JVD or thyromegaly appreciated. RESPIRATORY: Chest is symmetrical. No intercostals muscle retraction or any accessory muscle activation. There is no chest wall tenderness. Breath sounds are heard bilaterally. No rales or rhonchi heard. No evidence of any consolidation. BREASTS: Deferred. HEART: The heart sounds are normal. No S3 or S4. Short. Systolic murmur in the left sternal border. No pericardial rub ABDOMEN: No vessel pulsations or distention. No tenderness. No organomegaly appreciated. Bowel sounds are normally heard. : Deferred. RECTAL: Deferred. LYMPHATIC: No lymphadenopathy noted in the neck. EXTREMITIES: No edema or cyanosis. No clubbing. MUSCULOSKELETAL: No acute joint deformities or swelling SKIN: There are no significant rashes or ecchymosis NEUROPSYCHIATRIC: The patient is alert and oriented x3. Appears to be in a good mood. No tremors or rigidity noted. Data 12/28/22 03:43 12/28/22 03:43 Other Labs: Laboratory Last Values WBC 7.54 10^3/uL (3.29-11.43) 12/28/22 03:43 Corrected WBC Cancelled 12/26/22 21:16 RBC 4.02 10^6/uL (3.85-5.65) 12/28/22 03:43 Hgb 12.30 g/dL (11.27-16.99) 12/28/22 03:43 Hct 39.9 % (37-53) 12/28/22 03:43 MCV 99.3 fl (82-101) 12/28/22 03:43 MCH 30.6 pg (27-33) 12/28/22 03:43 MCHC 30.8 g/dL (30-55) 12/28/22 03:43 RDW 17.2 % (12.1-15.1) H 12/28/22 03:43 Plt Count 118 10^3/cmm (157-399) L 12/28/22 03:43 MPV 11.0 fL (7.4-10.4) H 12/28/22 03:43 Gran % Cancelled 12/26/22 21:16 Neut % (Auto) 46.3 % 12/28/22 03:43 Lymph % (Auto) 43.8 % 12/28/22 03:43 [place] % (Auto) 9.2 % 12/28/22 03:43 Eos % (Auto) 0.1 % 12/28/22 03:43 Baso % (Auto) 0.1 % 12/28/22 03:43 Neut # (Auto) 3.49 10^3/uL (1.8-7.7) 12/28/22 03:43 Lymph # (Auto) 3.3 10^3/uL (0.8-4.8) 12/28/22 03:43 [place] # (Auto) 0.7 10^3/uL (0.2-0.9) 12/28/22 03:43 Eos # (Auto) 0.0 10^3/uL (0.0-0.8) 12/28/22 03:43 Baso # (Auto) 0.0 10^3/uL (0.0-0.1) 12/28/22 03:43 Absolute Gran (auto) Cancelled 12/26/22 21:16 Nucleated RBC % (auto) 0 % 12/28/22 03:43 Nucleated RBCs # 0.0 /100WBC 12/28/22 03:43 PT 13.80 SECONDS (12.1-14.9) 12/26/22 21:49 INR 1.03 (0.8-1.2) 12/26/22 21:49 APTT 97.6 SECONDS (23.9-36.7) H 12/27/22 06:24 Sodium 143 mmol/L (136-145) 12/28/22 03:43 Potassium 4.5 mmol/L (3.5-5.1) 12/28/22 03:43 Chloride 109 mmol/L (98-107) H 12/28/22 03:43 Carbon Dioxide 27 mmol/L (22-29) 12/28/22 03:43 Anion Gap 11.5 (5-19) 12/28/22 03:43 BUN 20 mg/dL (8-23) 12/28/22 03:43 Creatinine 0.9 mg/dL (0.7-1.2) 12/28/22 03:43 GFR Calculation Not Reportable 12/28/22 03:43 Glucose 85 mg/dL (65-115) 12/28/22 03:43 Estimat Average Glucose 105 12/26/22 21:48 Hemoglobin A1c 5.3 % (4.0-6.0) 12/26/22 21:48 Calculated Osmolality 298 mOsm/kg (285-295) H 12/28/22 03:43 Calcium 8.5 mg/dL (8.5-10.5) 12/28/22 03:43 Phosphorus 3.1 mg/dL (2.5-4.5) 12/27/22 03:25 Magnesium 2.0 mg/dL (1.7-2.3) 12/27/22 03:25 Total Bilirubin 0.3 mg/dL (0.15-1.2) 12/26/22 21:49 AST 17 U/L (0-40) 12/26/22 21:49 ALT 17 U/L (0-41) 12/26/22 21:49 Alkaline Phosphatase 95 U/L (40-130) 12/26/22 21:49 Troponin T Baseline 20 ng/L (0-15) H 12/26/22 21:49 Troponin T 120 Minute 28.26 ng/L (0-15) H 12/26/22 23:55 Delta Troponin T 8.26 ABS# (0-10) 12/26/22 23:55 Troponin T Hi Sens 6Hr 116.8 ng/L (0-15) H 12/27/22 03:25 Troponin T Hi Sens 6Hr Delta 96.8 ng/L (0-12) H* 12/27/22 03:25 Total Protein 6.1 g/dL (6.6-8.7) L 12/26/22 21:49 Albumin 4.2 g/dL (3.5-5.2) 12/26/22 21:49 Globulin 1.9 g/dL (1.3-4.6) 12/26/22 21:49 Triglycerides 47 mg/dL (0-150) 12/27/22 03:25 Cholesterol 171 mg/dL (0-200) 12/27/22 03:25 LDL Cholesterol, Calc 129 mg/dL (50-129) 12/27/22 03:25 HDL Cholesterol 33 mg/dL (60-100) L 12/27/22 03:25 LDL/HDL Ratio 3.91 RATIO (0.00-3.22) H 12/27/22 03:25 Cholesterol/HDL Ratio 5.18 mg/dL (1.0-5.00) H 12/27/22 03:25 A&P Assessment and plan (1) NSTEMI (non-ST elevated myocardial infarction): Currently the patient is remaining stable. May continue on the current medications. To evaluate his ischemic burden, it would be appropriate to go ahead and do a Myocardial perfusion imaging. Since the patient is wanting to go home for the weekend, we may go ahead and scheduled this as an outpatient, early next week (2) Hypertension: Currently normotensive, may continue on the current medications. (3) Thrombocytopenia: Today the platelet count is 118,000. May continue on the current treatment at this point. (4) Peripheral artery occlusion: Patient is currently asymptomatic. Seems to me that the patient developed gradual bypass around the occluded iliac arteries. He has no exertional claudications or other symptoms of peripheral ischemia Plan Patient is being discharged home today. Advised to come back to the hospital, if he has any recurrence of chest pain or any new symptoms. Will be scheduled for the Lexiscan/sestamibi/sestamibi perfusion scan as early as possible next week. Based on the results, further recommendations will be made. Attestations Medical Necessity Statement*: As per the primary Coding Level of Care Code 05414 Diagnoses NSTEMI (non-ST elevated myocardial infarction) I21.4 Hypertension I10 Thrombocytopenia D69.6 Peripheral artery occlusion I77.9
[2022-12-28] MEDS: dilTIAZem ER (24HR) 120 mg Capsule PO (09:49)
[2022-12-28] MEDS: aspirin 81 mg EC Tablet PO (09:49)
[2022-12-28] MEDS: sertraline 50 mg Tablet PO (09:49)
[2022-12-28] MEDS: lidocaine 5% Patch 1 PATCH TOPICAL (09:50)
--- NOTE | 2022-12-28 10:08 | PC.NURSE ---
Discharge Note Patient discharged to home via POV accompanied by son. Discharge instructions reviewed with patient and/or arborist representative. Mobile pharmacy medications and/or prescriptions provided. Belongings/home medications returned.
== END 2022-12-28 10:09 | disposition home or self-care (01) ==
LOC: ER 21:51 → ICU 23:12
PROVIDERS: Internal Medicine Cardiovascular Disease; Admitting Provider Internal Medicine; Emergency Provider Emergency Medicine; PCP Urology; Visit Provider Internal Medicine
DX: R79.89 Other specified abnormal findings of blood chemistry (principal); I74.5 Embolism and thrombosis of iliac artery; Z95.1 Presence of aortocoronary bypass graft; R73.9 Hyperglycemia, unspecified; M19.90 Unspecified osteoarthritis, unspecified site; D69.6 Thrombocytopenia, unspecified; I10 Essential (primary) hypertension; I25.2 Old myocardial infarction; I25.10 Atherosclerotic heart disease of native coronary artery without angina pectoris; F17.200 Nicotine dependence, unspecified, uncomplicated; F17.210 Nicotine dependence, cigarettes, uncomplicated; Z66 Do not resuscitate; Z79.01 Long term (current) use of anticoagulants
CPT/HCPCS: 36415; 71045; 80048; 80053; 80061; 83036; 83735; 84100; 84484; 85025; 85610; 85730; 93005; 93306; 94640; 94760; 96365; 96374; 96375; 96376; 99152; 99153; 99285; C1769; C1894; G0378; J1644; J2250; J2270; J2405; J3010; J7030; Q0163

== ENCOUNTER → 2023-01-07 09:03 | Outpatient (BNVA) | payer MEDICARE, MEDICAID, SELFPAY | PROVIDERS: PCP Urology; Visit Provider Nurse Practitioner Family | DX: I21.4 Non-ST elevation (NSTEMI) myocardial infarction (principal); Z09 Encounter for follow-up examination after completed treatment for conditions other than malignant neoplasm; F17.210 Nicotine dependence, cigarettes, uncomplicated | CPT/HCPCS: 99213 ==

== ENCOUNTER 2023-01-10 09:25 | Outpatient (CLI) | payer MEDICARE, MEDICAID, SELFPAY ==
[2023-01-10 09:43] VITALS: BMI 24.2
--- NOTE | 2023-01-10 09:44 | ECG_ITS ---
[facility] Test Date: 2023-01-10 Pat Name: Dean Mejia Department: Room: Gender: Male Charge Histotechnologist: Mercedes Mansfield : 1950 Requested By: Ivon Matos Order Number: [id number] Nataliia MD: David Ruiz M.D. Interpretive Statements NAME OF STUDY: LEXISCAN SESTAMIBI STRESS TEST INDICATION: Nstemi PROCEDURE: At the baseline, the EKG revealed normal sinus rhythm with features of LVH. Possible old septal DC. Possible left atrial enlargement. The baseline heart was 83 bpm with a blood pressue of 152/60 mm of Hg Lexiscan was infused over a period of 20 seconds. A total of 0.4 milligrams of Lexiscan was infused. The stress phase was continued for a total of 5 minutes. Heart rate at the end of the stress phase was 96 bpm with a blood pressure 145/57 mm of Hg. The EKG at the peak infusion revealed nonspecific ST-T changes. Sestamibi was injected 20 seconds after the Lexiscan infusion. Heart rate at the end of the recovery phase was 94 bpm with a blood pressure of 148/62 mm of Hg. CONCLUSION: 1. No significant EKG changes with the LexiScan infusion 2. No LexiScan induced chest pain or cardiac arrhythmia 3. Normal blood pressure and heart rate response 4. Sestamibi/sestamibi perfusion scan pending; see separate report. Electronically Signed On 01-23-2023 9:29:43 ORCHESTRA MUSICIAN by David Ruiz M.D. [id number]
--- NOTE | 2023-01-10 09:45 | NMCV_ITS ---
NM lavon perf SPECT r/s* [id number] Dean Mejia Age: 72 Gender: M : 1950 Exam Date: 01/10/2023 10:29 Ordering Phys: Ivon Matos Technologist: ALDO Johnson Exam Location: [facility] Indications: MYOCARDIAL INFARCT STRESS TEST Please see separate stress test report in [facility] for full findings IMAGE PROTOCOL Rest/Stress 1 Lexiscan Day Radiopharmaceutical Dose (mCi) Administration Site Administered by Rest: Tc-99m 10.4 IV ALDO Hannah Sestamibi Stress:Tc-99m 32.6 IV ALDO Hannah Sestamibi Rest: 10-Jan-2023 60 Discovery 630 Stress: 10-Jan-2023 30 Discovery 630 0.4mg Lexiscan. Supine position only as patient was unable to lay prone. SPECT RESULTS Technical Quality: Excellent Raw Data Analysis: Normal Image Corrections: No attenuation or motion correction applied Summed Stress Score: 13 Summed Rest Score: 8 Summed Difference Score: 5 PERFUSION FINDINGS Moderate area of moderate to severely decreased tracer uptake was noted in the basal, mid and apical inferior; mid anteroseptal, apical septal, apical lateral knee and apex. Small areas of reversibility was noted in the basal inferior, and the and apical regions. Some reversibility was noted in the basal inferior, apical and anteroseptal regions. FUNCTIONAL RESULTS (calculated via Gated SPECT) Stress Image LV EF (%): 27 Stress EDV (mL):231 TID: 1.15 Stress ESV (mL):169 FUNCTIONAL FINDINGS: Segmental wall motion analysis revealed severe diffuse hypokinesia of the septum and the LV apex. Moderate hypokinesia of the inferior wall and the anterior wall regions. Markedly dilated LV cavity. The transient ischemic dilatation ratio was slightly elevated to 1.15 IMPRESSIONS 1. Myocardial perfusion imaging revealing moderate area of moderate to severely decreased aseptic tracer uptake, involving the inferior wall ,septum and the LV apex with some reversibility in these regions, suggesting myocardial scarring with ischemia, predominantly in distribution of the right coronary artery and left and descending artery with some involvement of the left circumflex artery. 2. Diminished LV ejection fraction 27%. 3. Multiple wall motion abnormalities as mentioned above. 4. Markedly dilated LV cavity with an end-systolic volume of 169 mL. No similar previous studies are available for comparison Dr David Ruiz MD FACC (Electronically Signed) Final Date: 11 January 2023 12:29 S
[2023-01-10] MEDS: regadenoson 0.4 Mg/5 ml Syringe IVP (11:03)
[2023-01-10 11:13] VITALS: BP 148/62; PULSE 93
== END 2023-01-10 09:26 | disposition home or self-care (01) ==
PROVIDERS: Visit Provider Nurse Practitioner Family
DX: I74.5 Embolism and thrombosis of iliac artery (principal); F17.200 Nicotine dependence, unspecified, uncomplicated; I10 Essential (primary) hypertension; I20.89 Other forms of angina pectoris
CPT/HCPCS: 36415; 78452; 93017; 96374; A9500; J2785

== ENCOUNTER → 2023-01-23 12:26 | Outpatient (BNVA) | payer MEDICARE, MEDICAID, SELFPAY | PROVIDERS: Visit Provider Internal Medicine Cardiovascular Disease | DX: I21.4 Non-ST elevation (NSTEMI) myocardial infarction (principal); I77.9 Disorder of arteries and arterioles, unspecified; J44.9 Chronic obstructive pulmonary disease, unspecified; F17.200 Nicotine dependence, unspecified, uncomplicated; I10 Essential (primary) hypertension | CPT/HCPCS: 99215 ==

== ENCOUNTER 2023-02-11 13:06 | Inpatient (IN) | payer MEDICARE, MEDICAID, SELFPAY ==
[2023-02-11] VITALS (19 sets, daily range): BP systolic 97–180; BP diastolic 65–98; PULSE 68–94; RESP 14–23; TEMP 36.9; O2SAT 90–96; BMI 24.2
--- NOTE | 2023-02-11 06:00 | XACV_ITS ---
Exam Room: 2 Ht: 168 cm Wt: 68 kg BSA: 1.79 m2 Gender: Male : 1950 Any Known Allergies: No known allergies Exam Priority: Routine Procedure(s): Procedure Description: Diagnostic procedure Procedure Description: Subclavian Angiography Procedure Description: Coronary Angiography Suresh MOORE; Diagnostic Cath Status: Elective Diagnostic Findings * INDICATION: Patient has been having worsening chest pain symptoms and has taken multiple nitros every day. On prior attempt at coronary angiography performed with Dr. Prince, both iliac arteries were found to be occluded. Plan for coronary angiogram from left radial/right radial arteries. * We initially obtained access in right radial artery. Significant spasm was noted. We were able to advance the wire after vasodilators were administered. We were able to advance a JL 3.5 diagnostic catheter into ascending aorta. However because of significant tortuosity and severe spasm it could not be manipulated well and engaged. Over the exchange length wire we then switched the catheter to JR4 diagnostic catheter. Only nonselective picture of RCA was obtained. No significant stenosis could be seen however visualization was limited. As catheter could not be manipulated at all secondary to spasm and tortuosity, we decided to proceed with left radial access. After access was obtained, we advanced the J-wire and JR4 catheter however it could not be advanced into the aorta. Angiography through JR4 diagnostic catheter showed total 100% occlusion of the left subclavian artery.. Conclusions Total occlusion of left subclavian artery. Only nonselective angiography of RCA performed secondary to lack of access and inability to manipulate catheter secondary to spasm and tortuosity. Patient has prior CABG. Recommendations Given patient's unstable anginal symptoms with need for multiple nitros every day, we will transfer patient to facility with vascular surgery availability. He will likely need iliac intervention prior to coronary angiography could be performed as otherwise no viable access. Coronary CTA may also help determine. Of CAD. Clinical Evaluation EBL: 5mL-10mL Procedural Details Pre-Procedure Time Out. Identified patient by full name and date of as verbalized by the patient/guarantor. Does the consent match the physician's order: Yes. Accurate & Complete Informed Consent: Yes. Inpatient/Outpatient History & Physical on Chart: Yes. If H&P is completed, is and addenduem needed: No; If yes, is the addendum complete: N/A. Visualize and Verify Site with Patient/Guarantor: N/A. Relevant Radiology Images available: Yes. Pre-op teaching completed and patient verbalized understanding. The risks, benefits, and alternatives of sedation and/or procedure were discussed by physician. The patient agrees to continue. Procedure started. [facility] Clinical Fraility Score: 4: Vulnerable. Receiving Team Member Indications: Worsening Angina. Chest Pain Symptom Assessment: Atypical Angina. Correct patient, site and procedure confirmed by cath team. Current diagnosis: Chest Pain. PERRLA. Strong, equal hand sheep shearer bilaterally. Lungs clear x 5 lobes. IV Site on Arrival: 20 gauge in the left anticubital. IV Fluids: 0.9% NaCl at KVO. 0 mL infused prior to technology lab teacher. Pre Procedural Pulses: bilateral dorsalis pedis was Doppled. Pre Procedural Pulses: bilateral posterior tibial was Doppled. Pre Procedural Pulses: bilateral radial was 2+. Oxygen started at 2liters/min via nasal canula. right radial was prepped with chloroprep then draped in the usual sterile fashion. Baseline sample Acquired. HR: 92 BPM. Current Diagnosis : Chest Pain. Physician arrived. Physician scrubbed in. Immediate Pre-Procedure Time Out. Correct Patient: Yes; Correct Procedure: Yes; Correct Site: Yes; Correct Patient Position: Yes; Correct Supplies: Yes; Dried Flammable Prep: Yes; Blood Products Available: N/A;. Ultrasound being used to obtain arterial access. Lidocaine 1% infiltrated to the right radial. Arterial access obtained. A 5 [place] JL3.5 catheter in over wire. Catheter removed over the exchange wire. A 5 [place] JR4 catheter in over wire. Multiple views taken of right coronary artery. Catheter removed over the exchange wire. A 5 [place] AL1 catheter in over wire. Catheter removed over the exchange wire. left radial was prepped with chloroprep then draped in the usual sterile fashion. Lidocaine 1% infiltrated to the left radial. Ultrasound being used to obtain arterial access. Arterial access obtained. Side port of the right arterial sheath being flushed by Normal Saline flush to maintain patency. A 5 [place] JR4 catheter in over wire through the left radial sheath. Subclavian angiography performed of the left subclavian. Catheter removed over the exchange wire. A 5 [place] JR4 catheter in over wire through the right radial sheath. Contrast hand injected through the catheter of the right arm. Catheter out. Contrast hand injected through the sheath. Glidewire inserted through the right radial sheath. A 5 [place] JR4 catheter in over the glidewire. Catheter out OTW. Catheter and Wire out. Both sheaths being flushed periodically with heparnized saline to maintain patency. Dr. Stanton consulting with Dr. Ruiz. Physician scrubbed out. A TR Band was successful obtaining hemostatsis at the Left Radial artery insertion site. A TR Band was successful obtaining hemostatsis at the Right Radial artery insertion site. Vital chart was stopped. Post Procedure: Pulses reassessed and unchanged. PERRLA. Strong, equal hand sheep shearer bilaterally. No VTE prophylaxis required. Medication's Wasted: Heparin = 1000 units. Medication's Wasted: Lidocaine 1% = 2 mL. Medication's Wasted: Other = Fentanyl 25mcg Versed 1 mg. Total IV fluids: 400 mL. Estimated blood loss: 5mL-10mL. Responsiveness - Normal response to verbal stimuli; alert and oriented, PERRLA. Airway - Unaffected, no intervention required; spontaneous ventilation. Circulation: W/N/L, pulses unchanged. Nausea/Vomiting: No. Procedure completed. Patient transferred by wheelchair to CPRU. Access Site Site: Right Radial artery Sheath Size: 6 Fr Hemostasis Method: TR Band Hemostasis Success: Successful Site: Left Radial artery Sheath Size: 6 Fr Hemostasis Method: TR Band Hemostasis Success: Successful Procedure Medications Start: 8:52 AM Stop: 8:52 AM Medication: Fentanyl Amount: 25 mcg Route: I.V. Start: 8:59 AM Stop: 8:59 AM Medication: Versed 1 mg and Fentanyl 25 mcg Amount: 1 Route: I.V. Start: 9:04 AM Stop: 9:04 AM Medication: Versed Amount: 1 mg Route: I.V. Start: 9:08 AM Stop: 9:08 AM Medication: Nitrogylcerin Amount: 200 mcg Route: I.A. Start: 9:11 AM Stop: 9:11 AM Medication: Heparin Amount: 4000 units Route: I.V. Start: 9:24 AM Stop: 9:24 AM Medication: Versed Amount: 1 mg Route: I.V. Start: 9:25 AM Stop: 9:25 AM Medication: Fentanyl Amount: 25 mcg Route: I.V. Start: 9:32 AM Stop: 9:32 AM Medication: Nitrogylcerin Amount: 200 mcg Route: I.A. Start: 9:32 AM Stop: 9:32 AM Medication: Heparin Amount: 1000 units Route: I.V. Start: 9:39 AM Stop: 9:39 AM Medication: Nitrogylcerin Amount: 200 mcg Route: I.A. Start: 9:41 AM Stop: 9:41 AM Medication: 0.9% Saline Amount: 250 ml Route: I.V. bolus Start: 9:46 AM Stop: 9:46 AM Medication: Verapamil Amount: 5 mg Route: I.A. I, the attending physician, have reviewed and verified all procedure medications. Yes, all medications given per verbal order History/Risk Factors Hypertension: Yes Dyslipidemia: No Peripheral Arterial Disease (PAD): Yes Myocardial Infarction (SC): Yes Obesity: No Renal Disease: No Tobacco Use: Current/Recent(w/in 1 year) Prior Interventions CABG: Yes Valve Surgery: No Report Signatures Finalized by Tyshawn Stanton MD on 02/16/2023 04:20 PM
[2023-02-11 06:25] LABS: Basophils % 0.1 %; Eosinophils # 0.1 10^3/uL (0.0-0.8); Eosinophils % 1.5 %; Hematocrit 41.2 % (37-53); Lymphocytes # 4.6 10^3/uL (0.8-4.8); Lymphocytes % 52.8 %; Mean Corpuscular HGB Conc 31.1 g/dL (30-55); Mean Corpuscular Hemoglobin 30.3 pg (27-33); Mean Corpuscular Volume 97.4 fl (82-101); Mean Platelet Volume 10.4 fL (7.4-10.4); Monocytes # 0.7 10^3/uL (0.2-0.9); Monocytes % 8.1 %; Neutrophils # 3.21 10^3/uL (1.8-7.7); Neutrophils % 37.3 %; Nucleated Red Blood Cells % 0 %; Platelet Count 120 10^3/cmm (157-399); Red Blood Count 4.23 10^6/uL (3.85-5.65); Red Cell Distribution Width 18.5 % (12.1-15.1); White Blood Count 8.62 10^3/uL (3.29-11.43)
[2023-02-11] MEDS: diphenhydrAMINE 50 mg Capsule PO (06:30)
--- NOTE | 2023-02-11 06:30 | PC.NURSE ---
Physician Notification Dr. Stanton notified of patient complaints of CP this am. Pt reports took sublingual nitro around 4 am. Reports CP and upper back pain 08/19. BP 180/98. Received telephone orders to Draw troponin and start nitro gtt at 5mcg/min.
[2023-02-11 06:38] LABS: Anion Gap 14.8 (5-19); Blood Urea Nitrogen 12 mg/dL (8-23); Calcium 8.9 mg/dL (8.5-10.5); Carbon Dioxide 26 mmol/L (22-29); Chloride 106 mmol/L (98-107); Glucose 112 mg/dL (65-115); Osmolality Calculated 297 mOsm/kg (285-295); Potassium 3.8 mmol/L (3.5-5.1); Sodium 143 mmol/L (136-145)
--- NOTE | 2023-02-11 06:40 | PC.NURSE ---
Nitro gtt obtained from lab support technician daniel. Nitro gtt started in CPRU at 5mcg/min .
[2023-02-11 07:04] LABS: Troponin T (5th) Once 44 ng/L (0-15)
--- NOTE | 2023-02-11 08:47 | PC.NURSE ---
Procedure was delayed due to STEMI presenting through the ER
--- NOTE | 2023-02-11 09:00 | W.PM.OPSUD ---
Surgery/Procedure H&P Update DATE OF PROCEDURE: February 11, 2023 DATE H&P PERFORMED: 01/23/23 H&P UPDATE INFORMATION: I have reviewed H&P completed within last 30 days, I have examined patient prior to procedure and Changes to prior documentation as noted here CHANGES TO PREVIOUS DOCUMENTATION: Patient has been having worsening chest pain symptoms and has taken multiple nitros every day. On prior attempt at coronary angiography performed with Dr. Prince, both iliac arteries were found to be occluded. Plan for coronary angiogram from left radial/right radial arteries. PREOP DIAGNOSIS: Worsening angina PRIMARY INDICATION FOR PROCEDURE: Worsening angina PLANNED PROCEDURE: Operation Date: 02/11/23 07:00 Proposed Procedures p [facility] 95343,I21.4(Left) - Tyshawn Stanton MD PATIENT REASSESSED PRIOR TO SEDATION, WITH NO CHANGE NOTED: Yes PHYSICAL EXAM: alert, oriented x 3, clear to auscultation bilaterally and regular rate & rhythm AIRWAY EVAL/ANESTHESIA PLAN: normal airway, ASA III, Local Anesthesia, Risks, benefits & alternatives of sedation and/or procedure discussed and Patient agrees to continue as planned
--- NOTE | 2023-02-11 10:09 | SUR.PHASEI ---
POST CATH NOTE Patient received from laborer livestock. Status post cardiac catheterization via the right and left radial approach. TR band in place to the right radial and left radial artery. Both bands are hemostatic at this time. Verbal post cath instuctions went over with the patient; he understood insructions well. Vitals and assessments per flowsheets. IV is patient to left ac space. Currently IV is 0.9% normal saline at 100 ml/hr and Nitroglycerin infusing at 5 mcg/min as ordered post cath. Holding at this time pending floor an bed availablity. Family here now. Call light in reach. Informed to call for needs.
--- NOTE | 2023-02-11 10:09 | SUR.PHASEI ---
POST CATH FLUIDS IV 0.9% NS AT 100 ML/HR. IV Nitroglycerin at 5 mcg/min. Both infusing in left ac iv. No issues noted.
[2023-02-11 10:58] LABS: Troponin T (5th) Once 153 ng/L (0-15)
--- NOTE | 2023-02-11 11:02 | SUR.PHASEI ---
PHYSICIAN NOTIFICATION Critical TROPONIN [address] DANIELLE. STATES TO START HEPARIN PROTOCOL AFTER 2 HOURS AFTER TR BANDS ARE REMOVED. NOTED.
--- NOTE | 2023-02-11 13:10 | PM.TDS ---
Transfer Summary Providers Date of Admission: 02/11/23 13:06 Date of Discharge/Transfer: 02/11/23 Attending Provider at Admission: Tyshawn Stanton MD Attending Provider at Transfer: Tyshawn Stanton MD Primary Care Provider: Roberto Obrien MD Transfer Plans: Anticipated date of transfer: 02/11/23. Receiving Facility: [facility] Receiving Provider: Dr Sloan. Diagnoses at Discharge Discharge Diagnosis (1) NSTEMI (non-ST elevated myocardial infarction): Status: Acute (2) Coronary artery disease: Status: Acute (3) Tobacco use disorder: Status: Acute (4) Hypertension: Status: Acute (5) Hx of CABG: Status: Acute (6) Elevated troponin: Status: Acute (7) Peripheral artery occlusion: Status: Acute Reason for Visit Reason for Visit I21.4 Brief History: 73-year-old man with past medical history of CAD s/p CABG with SVG to RCA, SVG to diagonal, SVG to left circumflex artery and free BARONE to LAD had recent NSTEMI. At that time coronary angiography could not be performed as bilateral iliacs were found to be occluded. This was performed by Dr. Prince. He continued having on and off chest pain. Stress test showed ischemia in LAD, RCA and left circumflex artery territory. Plan to perform coronary angiography from radial access. He is having active chest pain this morning. Rates it as 7 /10. He has been started on nitroglycerin gtt. initial troponin is elevated at 44. Hospital Course Hospital Course Left radial access was obtained for coronary angiography however he has not 100% occluded subclavian artery. Right radial access was obtained however artery was small in caliber and spasmed. We could go into aortic arch which was very tortuous but vessels could not be engaged. Nonselective engagement of RCA was done however definitive picture could not be taken. Given patient's lack of access, worsening chest pain with multiple nitros every day and elevated troponin, plan is to transfer him to a center with vascular surgery availability. He can have intervention of iliac artery prior to coronary angiography and PCI. [facility] energy efficient site manager, Dr. Sloan was contacted who has accepted transfer. Will continue with nitro drip. Heparin to be resumed at 2 hours after TR band is off. Continuing aspirin and Plavix. Physical Exam Narrative: GENERAL: Patient is alert, awake and oriented x3. [] NECK: No jugular vein distension. [] HEENT: No cyanosis. No icterus. No pallor. [] HEART: Regular S1 and S2. No murmur, rub or gallop. [] LUNGS: Clear to auscultate bilaterally. [] CENTRAL NERVOUS SYSTEM: Grossly nonfocal. [] EXTREMITIES: Lower extremities with 1+ edema bilaterally. 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 request for service Routine Exams 02/11/23 06:00 Taken Laboratory Last Values WBC 8.62 10^3/uL (3.29-11.43) 02/11/23 06:14 RBC 4.23 10^6/uL (3.85-5.65) 02/11/23 06:14 Hgb 12.80 g/dL (11.27-16.99) 02/11/23 06:14 Hct 41.2 % (37-53) 02/11/23 06:14 MCV 97.4 fl (82-101) 02/11/23 06:14 MCH 30.3 pg (27-33) 02/11/23 06:14 MCHC 31.1 g/dL (30-55) 02/11/23 06:14 RDW 18.5 % (12.1-15.1) H 02/11/23 06:14 Plt Count 120 10^3/cmm (157-399) L 02/11/23 06:14 MPV 10.4 fL (7.4-10.4) 02/11/23 06:14 Neut % (Auto) 37.3 % 02/11/23 06:14 Lymph % (Auto) 52.8 % 02/11/23 06:14 [place] % (Auto) 8.1 % 02/11/23 06:14 Eos % (Auto) 1.5 % 02/11/23 06:14 Baso % (Auto) 0.1 % 02/11/23 06:14 Neut # (Auto) 3.21 10^3/uL (1.8-7.7) 02/11/23 06:14 Lymph # (Auto) 4.6 10^3/uL (0.8-4.8) 02/11/23 06:14 [place] # (Auto) 0.7 10^3/uL (0.2-0.9) 02/11/23 06:14 Eos # (Auto) 0.1 10^3/uL (0.0-0.8) 02/11/23 06:14 Baso # (Auto) 0.0 10^3/uL (0.0-0.1) 02/11/23 06:14 Nucleated RBC % (auto) 0 % 02/11/23 06:14 Nucleated RBCs # 0.0 /100WBC 02/11/23 06:14 Sodium 143 mmol/L (136-145) 02/11/23 06:14 Potassium 3.8 mmol/L (3.5-5.1) 02/11/23 06:14 Chloride 106 mmol/L (98-107) 02/11/23 06:14 Carbon Dioxide 26 mmol/L (22-29) 02/11/23 06:14 Anion Gap 14.8 (5-19) 02/11/23 06:14 BUN 12 mg/dL (8-23) 02/11/23 06:14 Creatinine 1.1 mg/dL (0.7-1.2) 02/11/23 06:14 GFR Calculation Not Reportable 02/11/23 06:14 Glucose 112 mg/dL (65-115) 02/11/23 06:14 Calculated Osmolality 297 mOsm/kg (285-295) H 02/11/23 06:14 Calcium 8.9 mg/dL (8.5-10.5) 02/11/23 06:14 Troponin T 5th Gen ng/L 153 ng/L (0-15) H* 02/11/23 10:25 Recent Clincial Data Last Vital Signs Temp 98.5 F 02/11/23 06:26 Pulse 72 02/11/23 12:30 Resp 16 02/11/23 12:30 BP 106/73 02/11/23 12:30 Pulse Ox 92 02/11/23 12:30 O2 Del Method Room Air 02/11/23 12:45 Vital Signs Temp Pulse Resp BP Pulse Ox O2 Del Method 02/11/23 12:45 Room Air 02/11/23 12:30 72 16 106/73 92 Room Air 02/11/23 12:30 Room Air 02/11/23 12:15 Room Air 02/11/23 12:15 74 18 123/67 92 Room Air 02/11/23 12:00 68 17 117/70 90 Room Air 02/11/23 12:00 Room Air 02/11/23 11:45 Room Air 02/11/23 11:45 74 19 H 103/66 92 Room Air 02/11/23 11:30 Room Air 02/11/23 11:30 77 21 H 136/73 94 Room Air 02/11/23 11:15 76 19 H 97/68 93 Room Air 02/11/23 11:00 Room Air 02/11/23 11:00 79 21 H 111/78 95 Room Air 02/11/23 10:45 Room Air 02/11/23 10:45 76 17 112/76 90 Room Air 02/11/23 10:30 75 20 H 112/76 93 Room Air 02/11/23 10:30 Room Air 02/11/23 10:15 76 18 112/76 90 Room Air 02/11/23 10:15 Room Air 02/11/23 10:09 81 20 H 149/74 92 Room Air 02/11/23 10:09 Room Air 02/11/23 06:26 98.5 F 92 14 180/98 02/11/23 06:26 Room Air Intake & Output/Weight 02/09/23 02/10/23 02/11/23 02/12/23 06:59 06:59 06:59 06:59 Intake Total 480 / 480 Balance 480 / 480 Weight 150 lb Vitals Last Vital Signs Temp 98.5 F 02/11/23 06:26 Pulse 72 02/11/23 12:30 Resp 16 02/11/23 12:30 BP 106/73 02/11/23 12:30 Pulse Ox 92 02/11/23 12:30 O2 Del Method Room Air 02/11/23 12:45 TS Medications Medications Hydrocodone Bitart/Acetaminophen (Hydrocodone-Acetaminophen 7.5-325 Mg Tablet) 1 tab PO BID [facility] Albuterol Sulfate (Albuterol 8 Gm Mdi) 2 puff INHALATION Q6H [facility] Aspirin (Aspirin 81 Mg Ec Tablet) 81 mg PO DAILY [facility] Atorvastatin Calcium (Atorvastatin 40 Mg Tablet) 40 mg PO BEDTIME [facility] Clopidogrel Bisulfate (Clopidogrel 75 Mg Tablet) 75 mg PO DAILY [facility] Diltiazem HCl (Diltiazem Er (24hr) 120 Mg Capsule) 120 mg PO DAILY [facility] Sodium Chloride (Sodium Chloride 0.9%) 1,000 mls @ 50 mls/hr IV .Q20H ONE Stop: 02/12/23 01:59 Last Admin: 02/11/23 07:15 Dose: Not Given Sodium Chloride (Sodium Chloride 0.9%) 1,000 mls @ 50 mls/hr IV .Q20H ONE Stop: 02/12/23 01:59 Nitroglycerin/Dextrose (Nitroglycerin Drip) 50 mg in 250 mls @ 0 mls/hr IV .Q0M JM; Protocol Isosorbide Mononitrate (Isosorbide Mononitrate Er 30 Mg Tablet) 30 mg PO BID JM Lisinopril (Lisinopril 5 Mg Tablet) 5 mg PO DAILY JM Nitroglycerin (Nitroglycerin 0.4 Mg Sublingual Tablet) 0.4 mg SUBLINGUAL Q5M PRN PRN Reason: Chest Pain Sertraline HCl (Sertraline 50 Mg Tablet) 50 mg PO DAILY JM Trazodone HCl (Trazodone 100 Mg Tablet) 100 mg PO BEDTIME JM Discontinued Medications Aspirin (Aspirin 325 Mg Tablet) 325 mg PO ONCE ONE Stop: 02/11/23 06:01 Last Admin: 02/11/23 07:15 Dose: Not Given Diphenhydramine HCl (Diphenhydramine 50 Mg Capsule) 50 mg PO ONCE ONE Stop: 02/11/23 06:01 Last Admin: 02/11/23 06:30 Dose: 50 mg Diphenhydramine HCl (Diphenhydramine 50 Mg Capsule) 50 mg PO ONCE ONE Stop: 02/11/23 06:01 Fentanyl (Fentanyl 50 Mcg/Ml Inj 2ml) Confirm Administered Dose 100 mcg .ROUTE .STK-MED ONE Stop: 02/11/23 06:50 Heparin Sodium (Porcine) (Heparin 5,000 Unit/Ml Inj 1 Ml) Confirm Administered Dose 5,000 unit .ROUTE .STK-MED ONE Stop: 02/11/23 06:14 Heparin Sodium (Porcine) (Heparin 5,000 Unit/Ml Inj 1 Ml) Confirm Administered Dose 5,000 unit .ROUTE .STK-MED ONE Stop: 02/11/23 06:50 Nitroglycerin/Dextrose (Nitroglycerin Drip) Confirm Administered Dose 50 mg in 250 mls @ as directed .ROUTE .STK-MED ONE Stop: 02/11/23 06:37 Lidocaine HCl (Xylocaine) Confirm Administered Dose 1 mls @ as directed .ROUTE .STK-MED ONE Stop: 02/11/23 06:51 Sodium Chloride (Sodium Chloride 0.9%) Confirm Administered Dose 1,000 mls @ as directed .ROUTE .ST-MED ONE Stop: 02/11/23 06:51 Midazolam HCl (Midazolam 1 Mg/Ml Inj 2 Ml) Confirm Administered Dose 2 mg .ROUTE .STK-MED ONE Stop: 02/11/23 06:50 Midazolam HCl (Midazolam 1 Mg/Ml Inj 2 Ml) Confirm Administered Dose 2 mg .ROUTE .STK-MED ONE Stop: 02/11/23 09:24 Verapamil HCl (Verapamil 2.5 Mg/Ml Inj 2ml) Confirm Administered Dose 5 mg .ROUTE .ST-MED ONE Stop: 02/11/23 09:47 Allergies No Known Allergies Allergy (Verified 01/23/23 12:32) Home Medications albuterol sulfate 90 mcg/actuation aerosol inhaler (Ventolin HFA) 2 puff inhalation Q6H 09/14/19 [History Confirmed 02/11/23] diltiazem HCl 120 mg capsule,extended release 24 hr (Cartia XT) 120 mg PO DAILY 09/14/19 [History Confirmed 02/11/23] sertraline 50 mg tablet 50 mg PO DAILY 09/14/19 [History Confirmed 02/11/23] trazodone 100 mg tablet 100 mg PO BEDTIME 09/14/19 [History Confirmed 02/11/23] hydrocodone 7.5 mg-acetaminophen 325 mg tablet 1 tab PO BID 12/26/22 [History Confirmed 02/11/23] aspirin 81 mg tablet,delayed release 81 mg PO DAILY #60 tabs 12/28/22 [Rx Confirmed 02/11/23] atorvastatin 40 mg tablet 40 mg PO BEDTIME #60 tabs 12/28/22 [Rx Confirmed 02/11/23] clopidogrel 75 mg tablet (Plavix) 75 mg PO DAILY #60 tabs 12/28/22 [Rx Confirmed 02/11/23] lisinopril 5 mg tablet 5 mg PO DAILY #60 tabs 12/28/22 [Rx Confirmed 02/11/23] isosorbide mononitrate 30 mg tablet,extended release 24 hr 30 mg PO BID #120 tabs 01/07/23 [Rx Confirmed 02/11/23] ascorbic acid (vitamin C) 1,000 mg tablet 500 mg PO DAILY 01/23/23 [History Confirmed 02/11/23] omega [id number] oil 1,000 mg (120 mg-180 mg) capsule (Fish Oil) 1 cap PO DAILY 01/23/23 [History Confirmed 02/11/23] nitroglycerin 0.4 mg sublingual tablet 0.4 mg sublingual Q5M PRN Chest Pain #25 tabs 02/07/23 [Rx Confirmed 02/11/23] Discharge Plan Discharge Patient Disposition: Xfer Other Condition: Stable Prescriptions: Continued sertraline 50 mg tablet 50 mg PO DAILY diltiazem HCl [Cartia XT] 120 mg capsule,extended release 24hr 120 mg PO DAILY trazodone 100 mg tablet 100 mg PO BEDTIME albuterol sulfate [Ventolin HFA] 90 mcg/actuation HFA aerosol inhaler 2 puff INHALATION Q6H isosorbide mononitrate 30 mg tablet extended release 24 hr 30 mg PO BID Qty: 120 3RF omega [id number]-fish oil [Fish Oil] 1,000 mg (120 mg-180 mg) capsule 1 cap PO DAILY ascorbic acid (vitamin C) 1,000 mg tablet 500 mg PO DAILY nitroglycerin 0.4 mg tablet, sublingual 0.4 mg sublingual Q5M PRN (Reason: Chest Pain) Qty: 25 0RF hydrocodone-acetaminophen 7.5-325 mg tablet 1 tab PO BID atorvastatin 40 mg Tablet 40 mg PO BEDTIME Qty: 60 2RF aspirin 81 mg Tablet,Delayed Release (Dr/Ec) 81 mg PO DAILY Qty: 60 2RF clopidogrel [Plavix] 75 mg tablet 75 mg PO DAILY Qty: 60 2RF lisinopril 5 mg tablet 5 mg PO DAILY Qty: 60 2RF Discharge Orders: Discharge Order (Routine); Ordered 02/11/23 Ordered By: Tyshawn Stanton Patient Instructions: Opioid Safety Transfer Attestations Time Spent in Transfer Care: greater than 30 min Quality Metrics Clinical Quality Measures [ No reported AMI, CVA or VTE this stay] Coding Level of Care Code Acute Code for [facility] Fwd Diagnoses NSTEMI (non-ST elevated myocardial infarction) I21.4 Coronary artery disease I25.10 Tobacco use disorder F17.200 Hypertension I10 Hx of CABG Z95.1 Elevated troponin R79.89 Peripheral artery occlusion I77.9
--- NOTE | 2023-02-11 15:00 | PC.NURSE ---
Dr Stanton ordered the Heparin protocol to be started 2 hours after the TR-band could be removed.
[2023-02-11] MEDS: albuterol 2.5 mg/3 mL Neb INHALATION (15:05)
[2023-02-11] MEDS: heparin 5,000 unit/mL INJ 1 mL IV (15:19)
[2023-02-11] MEDS: heparin drip 25,000 UNIT/500 ML PREMIX 19 UNIT IV (15:24)
[2023-02-11] MEDS: sodium chloride 0.9% 1,000 ML 50 ML IV (15:42)
--- NOTE | 2023-02-11 16:29 | PC.NURSE ---
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 The patient has not had any chest pain since he has been on the floor. Provider ordered to stop the vamsi-drip. Give him a break due to patient having a headache. Then start on nitro paste 1 inch.
--- NOTE | 2023-02-11 17:19 | PC.NURSE ---
Report is called to Dina Cardona RN at [facility] in [place], [place].
[2023-02-11] MEDS: nitroglycerin 1 gm/inch oint Pkt 1 INCH TOPICAL (17:41)
--- NOTE | 2023-02-11 18:54 | PC.NURSE ---
Transferred to [facility] via [facility].
== END 2023-02-11 18:58 | disposition short-term general hospital (02) | DRG 287 ==
LOC: CSU 13:06
PROVIDERS: Internal Medicine; Admitting Provider Internal Medicine Cardiovascular Disease; PCP Internal Medicine; Visit Provider Internal Medicine Cardiovascular Disease
PROC: B210YZZ Fluoroscopy of Single Coronary Artery using Other Contrast (ICD-10-PCS; principal; 2023-02-11 07:00)
DX: I82.B12 Acute embolism and thrombosis of left subclavian vein (principal); I25.110 Atherosclerotic heart disease of native coronary artery with unstable angina pectoris; F17.200 Nicotine dependence, unspecified, uncomplicated; I25.2 Old myocardial infarction; Z95.1 Presence of aortocoronary bypass graft; Z79.82 Long term (current) use of aspirin; Z79.02 Long term (current) use of antithrombotics/antiplatelets
CPT/HCPCS: 36415; 80048; 84484; 85025; 93454; 94640; 96361; 96365; 99152; 99153; C1769; C1887; C1894; J1644; J2250; J3010; J3490; J3535; J7030; J7613; Q0163; Q9967